=== PATIENT | male | born 1980 | race Hispanic/Latino ===

== ENCOUNTER 2017-10-15 13:27 | Emergency (ER) | payer OTHER ==
[2017-10-15 13:49] VITALS: BMI 23.0
--- NOTE | 2017-10-15 15:47 | CT ---
Date of service: 10/15/2017 PROCEDURE: CT Cervical Spine without contrast HISTORY: non-traumatic diffuse neck tenderness COMPARISON: None available. TECHNIQUE: Axial computed tomography images were obtained of the cervical spine without the use of intravenous contrast. Coronal and sagittal reformatted images were created and reviewed. Radiation dose: Total exam DLP = 489 mGy-cm. This CT exam was performed using one or more of the following dose reduction techniques: Automated exposure control, adjustment of the mA and/or kV according to patient size, and/or use of iterative reconstruction technique. FINDINGS: VERTEBRAE: No fracture. Normal alignment. No destructive bony lesion. DISCS/SPINAL CANAL/NEURAL FORAMINA: No significant central canal or neural foraminal stenosis. There is an asymmetric disc bulge to the right at C5-6 which produces foraminal stenosis. There is disc degeneration with bony sclerosis and decreased disc height PARASPINAL SOFT TISSUES: Unremarkable. OTHER FINDINGS: None. IMPRESSION: There is an asymmetric disc bulge to the right at C5-6 which produces foraminal stenosis. There is disc degeneration with bony sclerosis and decreased disc height
[2017-10-15 15:54] VITALS: BP 132/77; PULSE 76; RESP 17; O2SAT 98
--- NOTE | 2017-10-15 15:54 | ED PDOC ---
Arrival/HPI - General Chief Complaint: Back Pain Time Seen by Provider: 10/15/17 14:25 Historian: Patient - History of Present Illness Narrative History of Present Illness (Text): 10/15/17 14:25 37 year old male, with past medical history of hypothyroidism, presents to the Emergency department complaining of diffused neck pain since yesterday. Patient states diffused nonradiating pain worsening today prompting him to present to the Emergency department for evaluation. Patient denies any direct trauma or heavy lifting. Patient denies taking any pain medication for the pain. Patient denies any fever, chills, nausea, vomiting, diarrhea, abdominal pain, chest pain , shortness of breath, headache or any other complaints. Time/Duration: 24 hours Symptom Onset: Gradual Symptom Course: Unchanged Quality: Aching Activities at Onset: Light Past Medical History - Provider Review Nursing Documentation Reviewed: Yes - Infectious Disease Hx of Infectious Diseases: None - Tetanus Immunization Tetanus Immunization: Unknown - Cardiac Hx Cardiac Disorders: No Hx Hypertension: No - Pulmonary Hx Respiratory Disorders: No Hx Tuberculosis: No - Neurological Hx Neurological Disorder: No Hx Alzheimer's Disease: No HX Cerebrovascular Accident: No Hx Seizures: No - HEENT Hx HEENT Disorder: No - Renal Hx Renal Disorder: No - Endocrine/Metabolic Hx Endocrine Disorders: Yes Hx Hypothyroidism: Yes - Hematological/Oncological Hx Blood Disorders: No Hx Cancer: No - Integumentary Hx Dermatological Disorder: Yes Hx Cellulitis: Yes (recurrent bilateral LE cellulitis) - Musculoskeletal/Rheumatological Hx Musculoskeletal Disorders: No - Gastrointestinal Hx Gastrointestinal Disorders: No - Genitourinary/Gynecological Hx Genitourinary Disorders: No Hx Sexually Transmitted Diseases: No - Psychiatric Hx Psychophysiologic Disorder: Yes Hx Anxiety: Yes Hx Depression: Yes Hx Substance Use: No - Past Surgical History Past Surgical History: No Previous - Anesthesia Hx Anesthesia: No - Suicidal Assessment Feels Threatened In Home Enviroment: No Family/Social History - Physician Review Nursing Documentation Reviewed: Yes Family/Social History: No Known Family HX Smoking Status: Heavy Smoker > 10 Cigarettes Daily Hx Alcohol Use: Yes Hx Substance Use: No Hx Substance Use Treatment: No Allergies/Home Meds Allergies/Adverse Reactions: Allergies No Known Allergies Allergy (Verified 10/15/17 15:54) Review of Systems - Physician Review All systems were reviewed & negative as marked: Yes - Review of Systems Constitutional: absent: Fevers Respiratory: absent: SOB Cardiovascular: absent: Chest Pain Gastrointestinal: absent: Abdominal Pain, Diarrhea, Nausea, Vomiting Musculoskeletal: Neck Pain Neurological: absent: Headache Physical Exam Vital Signs Reviewed: Yes Vital Signs Temp Pulse Resp BP Pulse Ox 10/15/17 16:13 98 F 76 17 132/77 98 10/15/17 15:53 76 17 132/77 98 10/15/17 13:46 98.0 F 80 20 144/91 H 99 Temperature: Afebrile Blood Pressure: Hypertensive Pulse: Regular Respiratory Rate: Normal Appearance: Positive for: Well-Appearing, Non-Toxic, Comfortable Pain Distress: None Mental Status: Positive for: Alert and Oriented X 3 - Systems Exam Head: Present: Atraumatic, Normocephalic Pupils: Present: PERRL Extroacular Muscles: Present: EOMI Conjunctiva: Present: Normal Mouth: Present: Moist Mucous Membranes Neck: Present: Normal Range of Motion, Other (diffused tenderness) Respiratory/Chest: Present: Clear to Auscultation, Good Air Exchange. No: Respiratory Distress, Accessory Muscle Use Cardiovascular: Present: Regular Rate and Rhythm, Normal S1, S2. No: Murmurs Abdomen: No: Tenderness, Distention, Peritoneal Signs Back: Present: Normal Inspection Upper Extremity: Present: Normal Inspection. No: Cyanosis, Edema Lower Extremity: Present: Normal Inspection. No: Edema Neurological: Present: GCS=15, CN II-XII Intact, Speech Normal Skin: Present: Warm, Dry, Normal Color. No: Rashes Psychiatric: Present: Alert, Oriented x 3, Normal Insight, Normal Concentration Medical Decision Making ED Course and Treatment: 10/15/17 14:25 Impression: 37 year old male presents to the Emergency department for diffused neck pain. Plan: -- CT of cervical spine -- Flexeril -- Toradol -- Reassess and disposition Prior Visits: Notes and results from previous visits were reviewed. Progress Notes: 10/15/17 15:57 CT of neck reviewed by radiologist, shows: There is an asymmetric disc bulge to the right at C5-6 which produces foraminal stenosis. There is disc degeneration with bony sclerosis and decreased disc height - RAD Interpretation Radiology Orders: 10/15/17 14:25 CERVICAL SPINE W/O CONTRAST [CT] Stat Differential Tester: Radiologist - Medication Orders Current Medication Orders: Discontinued Medications Cyclobenzaprine HCl (Flexeril) 10 mg PO STAT STA Stop: 10/15/17 14:26 Last Admin: 10/15/17 14:59 Dose: 10 mg Ketorolac Tromethamine (Toradol) 60 mg IM STAT STA Stop: 10/15/17 14:26 Last Admin: 10/15/17 14:59 Dose: 60 mg MAR Pain Assessment Document 10/15/17 14:59 [facility] (Rec: 10/15/17 15:00 [facility] [id number]) Pain Reassessment Is this a pain reassessment? No Sleep Is patient sleeping during reassessment? No Presence of Pain Presence of Pain Yes Pain Scale Used Pain Scale Used Numeric Location Left, Right or Bilateral Right Pain Location Body Site Neck Description Intensity of Pain at present 10 IM Administration Charges Document 10/15/17 14:59 [facility] (Rec: 10/15/17 15:00 [facility] [id number]) Charges for Administration # of IM Administrations 1 - Scribe Statement The provider has reviewed the documentation as recorded by the Scribe Ariella Mcguire. All medical record entries made by the Scribe were at my direction and personally dictated by me. I have reviewed the chart and agree that the record accurately reflects my personal performance of the history, physical exam, medical decision making, and the department course for this patient. I have also personally directed, reviewed, and agree with the discharge instructions and disposition. Disposition/Present on Arrival - Present on Arrival Any Indicators Present on Arrival: No History of DVT/PE: No History of Uncontrolled Diabetes: No Urinary Catheter: No History of Decub. Ulcer: No History Surgical Site Infection Following: None - Disposition Have Diagnosis and Disposition been Completed?: Yes Diagnosis: Neck pain Disposition: HOME/ ROUTINE Disposition Time: 15:40 Condition: GOOD Discharge Instructions (ExitCare): Herniated Disc (DC), Generalized Neck Pain ( DC) Additional Instructions: TONYA BARTLETT, thank you for letting us take care of you today. Your provider was Edmund Marie DO and you were treated for NECK AND SHOULDER PAIN. The emergency medical care you received today was directed at your acute symptoms. If you were prescribed any medication, please fill it and take as directed. It may take several days for your symptoms to resolve. Return to the Emergency Department if your symptoms worsen, do not improve, or if you have any other problems. Please contact your doctor or call one of the physicians/clinics you have been referred to that are listed on the Patient Visit Information form that is included in your discharge packet. Bring any paperwork you were given at discharge with you along with any medications you are taking to your follow up visit. Our treatment cannot replace ongoing medical care by a primary care provider outside of the emergency department. Thank you for allowing the [facility] team to be part of your care today. Follow up in the clinic in 3-4 days for re-evaluation and further management. Prescriptions: Ibuprofen [Motrin] 600 mg PO Q6 PRN #20 tab PRN Reason: Pain, Moderate (4-7) Meclizine [Meclizine*] 25 mg PO Q6 PRN #20 tab PRN Reason: Dizziness Referrals: [facility] [Outside] - Follow up with primary Fátima Newton MD [Staff Provider] - Follow up with primary Forms: [employer] (Swedish)
[2017-10-15 16:14] VITALS: TEMP 98
== END 2017-10-15 16:19 | disposition home or self-care (01) ==
LOC: ED 13:27
DX: M54.2 Cervicalgia (principal); E03.9 Hypothyroidism, unspecified; F17.210 Nicotine dependence, cigarettes, uncomplicated
CPT/HCPCS: 72125; 96372; 99283; J1885

== ENCOUNTER 2017-11-05 00:46 | Emergency (ER) | payer OTHER ==
[2017-11-05 00:51] VITALS: BMI 23.7
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
[2017-11-05 01:56] LABS: BASO # 0.03 K/mm3 (0.0-2.0); BASO % 0.7 % (0.0-3.0); EOS % 0.5 % (1.5-5.0); GRAN # 2.58 (1.4-6.5); GRAN % 59.6 % (50.0-68.0); HEMOGLOBIN 9.4 g/dL (14.0-18.0); LYMPH # 1.5 (1.2-3.4); LYMPH % 33.7 % (22.0-35.0); MEAN CELL VOLUME 103.1 fl (80.0-105.0); MEAN CORPUSCULAR HEMOGLOBIN 36.7 pg (25.0-35.0); MEAN CORPUSCULAR HGB CONC 35.6 g/dl (31.0-37.0); MEAN PLATELET VOLUME 10.4 fl (7.0-11.0); MONO # 0.2 (0.1-0.6); MONO % 5.5 % (1.0-6.0); RBC 2.56 10^6/uL (3.5-6.1); RED CELL DISTRIBUTION WIDTH 12.6 % (11.5-14.5); WHITE BLOOD COUNT 4.3 10^3/ul (4.5-11.0)
[2017-11-05 02:09] LABS: ALB/GLOB RATIO 1.6 (1.1-1.8); ALBUMIN 4.8 g/dL (3.0-4.8); ALT/SGPT 64 U/L (7-56); AST/SGOT 198 U/L (17-59); BLOOD UREA NITROGEN 17 mg/dL (7-21); CALCIUM 9.2 mg/dL (8.4-10.5); GFR AFRICAN-AMERICAN > 60; GFR NON-AFRICAN AMERICAN > 60
[2017-11-05 03:13] LABS: BARBITURATES, UR NEGATIVE (NEGATIVE); BENZODIAZEPINES, UR NEGATIVE (NEGATIVE); OPIATES, UR NEGATIVE (NEGATIVE); PHENCYCLIDINE, UR NEGATIVE (NEGATIVE)
[2017-11-05 07:33] VITALS: TEMP 98.1
--- NOTE | 2017-11-05 08:27 | RAD ---
Date of service: 11/05/2017 HISTORY: depression/SI COMPARISON: 05/08/2016 FINDINGS: LUNGS: The lungs are well inflated. There is mild pulmonary venous congestion PLEURA: No significant pleural effusion identified, no pneumothorax apparent. CARDIOVASCULAR: Normal. OSSEOUS STRUCTURES: No significant abnormalities. VISUALIZED UPPER ABDOMEN: Normal. OTHER FINDINGS: None. IMPRESSION: No acute findings.
[2017-11-05 10:15] VITALS: RESP 18
--- NOTE | 2017-11-05 10:55 | ED PDOC ---
Physical Exam Vital Signs Reviewed: Yes Vital Signs Temp Pulse Resp BP Pulse Ox 11/05/17 11:37 80 18 104/78 99 11/05/17 10:15 88 18 90/58 L 98 11/05/17 07:33 98.1 F 70 16 118/66 99 11/05/17 04:26 63 16 127/75 100 11/05/17 00:54 98.3 F 71 20 122/87 98 Temperature: Afebrile Blood Pressure: Normal Pulse: Regular Respiratory Rate: Normal Appearance: Positive for: Well-Appearing, Non-Toxic, Comfortable Pain Distress: None Mental Status: Positive for: Alert and Oriented X 3 Medical Decision Making ED Course and Treatment: 11/05/17 07:30 Patient endorsed to me by Dr. Daniels. Currently awaiting final mental health evaluation and disposition. Upon re-evaluation, patient is awake, alert, and denies any pain/discomfort. Reviewed blood work results with patient, including about his low hemoglobin levels. On re-examination, patient has no active bleeding, no hematemesis, no melena, no bloody stool. patient is not tremulous/hypotensive/tachycardic. Patient has been advised to follow-up of symptoms and follow-up for anemia. Awaiting PES consultation. 11/05/17 12:08 Patient evaluated and cleared for discharge from mental health evaluation. He denies suicidal ideation or homicidal ideation. No hallucinations noted. Not tremulous or tachycardic. Not orthostatic. No abdominal pain. Stool is negative for acute blood. I have again reviewed abnormal hgb and platelet count with patient and stressed need for close follow-up. As there is currently no active bleeding and patient cv stable, I have reviewed risks of alcohol abuse with patient and advised follow-up at clinic and PCP. Prior to discharge patient is ambulatory with no dizziness or gait instability denies any lightheadedness or dizziness. Again, no bleeding noted or reported. Anemia discussed with witness in laymen's terms and need for follow-up. Reassessment Condition: Re-examined - Lab Interpretations Lab Results: 11/05/17 01:47 11/05/17 01:47 Lab Results 11/05/17 02:03: Urine Opiates Screen Negative, Urine Methadone Screen Negative, Ur Barbiturates Screen Negative, Ur Phencyclidine Scrn Negative, Ur Amphetamines Screen Negative, U Benzodiazepines Scrn Negative, U Oth Cocaine Metabols Negative, U Cannabinoids Screen Negative 11/05/17 01:47: Alcohol, Quantitative 406 H* 11/05/17 01:47: Sodium 145, Potassium 3.8, Chloride 98, Carbon Dioxide 29, Anion Gap 23 H, BUN 17, Creatinine 1.0, Est GFR ( Amer) > 60, Est GFR ( Non-Af Amer) > 60, Random Glucose 95, Calcium 9.2, Total Bilirubin 1.2, AST 198 H, ALT 64 H, Alkaline Phosphatase 82, Total Protein 7.8, Albumin 4.8, Globulin 3.0, Albumin/Globulin Ratio 1.6 11/05/17 01:47: WBC 4.3 L D, RBC 2.56 L, Hgb 9.4 L, Hct 26.4 L, MCV 103.1, MCH 36.7 H, MCHC 35.6, RDW 12.6, Plt Count 92 L, MPV 10.4, Gran % 59.6, Lymph % ( Auto) 33.7, [place] % (Auto) 5.5, Eos % (Auto) 0.5 L, Baso % (Auto) 0.7, Gran # 2.58, Lymph # (Auto) 1.5, [place] # (Auto) 0.2, Eos # (Auto) 0.0, Baso # (Auto) 0.03 11/05/17 00:54: POC Glucose (mg/dL) 61 L - RAD Interpretation Radiology Orders: 11/05/17 01:27 CXR [CHEST PORTABLE] [RAD] Stat Suction Operator: Radiologist - Scribe Statement The provider has reviewed the documentation as recorded by the Haley Marie Provider Scribe Attestation: All medical record entries made by the Antwonibdelia were at my direction and personally dictated by me. I have reviewed the chart and agree that the record accurately reflects my personal performance of the history, physical exam, medical decision making, and the department course for this patient. I have also personally directed, reviewed, and agree with the discharge instructions and disposition. Disposition/Present on Arrival - Present on Arrival Any Indicators Present on Arrival: No History of DVT/PE: No History of Uncontrolled Diabetes: No Urinary Catheter: No History of Decub. Ulcer: No History Surgical Site Infection Following: None - Disposition Have Diagnosis and Disposition been Completed?: Yes Diagnosis: Alcohol intoxication, Depression, Anemia Disposition: HOME/ ROUTINE Disposition Time: 12:10 Patient Plan: Discharge Condition: GOOD Discharge Instructions (ExitCare): Depression, Adult (DC), Alcohol Abuse and Alcoholism (DC) Additional Instructions: You have a "low hemoglobin count" and "low platelet count". Risks of excessive alcohol use have been reviewed with you. For any abdominal pain, ANY BLEEDING, any dark or bloody urine or stool, any chest pain or shortness of breath, any coughing or vomiting bloody, any bruising , any headaches, get rechecked immediately. You MUST have blood work rechecked on you, please call your physician or set up appointment in clinic for further evaluation of your blood tests. Referrals: FAMILY PROVIDER,NO [Primary Care Provider] - Follow up with primary Fátima Newton MD [Staff Provider] - Follow up with primary [facility] [Outside] - Follow up with primary Forms: [employer] (Mauritian)
[2017-11-05 11:38] VITALS: BP 104/78; PULSE 80; O2SAT 99
--- NOTE | 2017-11-05 15:07 | CARD ---
APPROVED REPORT Date of service: 11/05/2017 EKG Measurement Heart [id number] ID [id number] <Conclusion> Normal sinus rhythm Prolonged QT Abnormal ECG
== END 2017-11-05 12:19 | disposition home or self-care (01) ==
LOC: ED 00:46
DX: F10.129 Alcohol abuse with intoxication, unspecified (principal); Y90.8 Blood alcohol level of 240 mg/100 ml or more; F32.9 Major depressive disorder, single episode, unspecified

== ENCOUNTER 2017-11-06 23:37 | Emergency (ER) | payer OTHER ==
[2017-11-06 23:37] VITALS: BMI 23.7
--- NOTE | 2017-11-07 00:43 | ED PDOC ---
Arrival/HPI - General Chief Complaint: Trauma Time Seen by Provider: 11/06/17 23:59 Historian: Patient - History of Present Illness Narrative History of Present Illness (Text): 11/07/17 00:43 A 37 year old male, whose past medical history includes hypothyroidism, chronic b/l LE Cellulitis, and depression, presents to the emergency department complaining of head injury status post fall from earlier today. Patient is distraught, overwhelmed and very drunk. Patient notes he has no place to stay and has brought a suitcase with him. Patient denies any fever, chills, chest pain, shortness of breath, nausea, vomiting, diarrhea, urinary symptoms, back pain, neck pain, headache, dizziness, or any other complaints. No PMD Time/Duration: Other (earlier tonight) Symptom Onset: Sudden Symptom Course: Unchanged Context: Street Past Medical History - Provider Review Nursing Documentation Reviewed: Yes - Infectious Disease Hx of Infectious Diseases: None - Tetanus Immunization Tetanus Immunization: Unknown - Cardiac Hx Cardiac Disorders: No - Pulmonary Hx Respiratory Disorders: No - Neurological Hx Neurological Disorder: No - HEENT Hx HEENT Disorder: No - Renal Hx Renal Disorder: No - Endocrine/Metabolic Hx Endocrine Disorders: Yes Hx Hypothyroidism: Yes - Hematological/Oncological Hx Blood Disorders: No - Integumentary Hx Dermatological Disorder: Yes Hx Cellulitis: Yes (recurrent bilateral LE cellulitis) - Musculoskeletal/Rheumatological Hx Musculoskeletal Disorders: No - Gastrointestinal Hx Gastrointestinal Disorders: No - Genitourinary/Gynecological Hx Genitourinary Disorders: No - Psychiatric Hx Psychophysiologic Disorder: Yes Hx Anxiety: Yes Hx Depression: Yes Hx Substance Use: No - Past Surgical History Past Surgical History: No Previous - Anesthesia Hx Anesthesia: No - Suicidal Assessment Feels Threatened In Home Enviroment: No Family/Social History - Physician Review Nursing Documentation Reviewed: Yes Family/Social History: Unknown Family HX Smoking Status: Heavy Smoker > 10 Cigarettes Daily Hx Alcohol Use: Yes Hx Substance Use: No Hx Substance Use Treatment: No Allergies/Home Meds Allergies/Adverse Reactions: Allergies No Known Allergies Allergy (Verified 10/15/17 15:54) Home Medications: Home Meds Medication Instructions Recorded Confirmed No Known Home Med 11/05/17 11/05/17 Review of Systems - Physician Review All systems were reviewed & negative as marked: Yes - Review of Systems Constitutional: Other (bump on the right side of his head). absent: Fevers, Night Sweats Eyes: Normal ENT: Normal Respiratory: Normal. absent: SOB Cardiovascular: Normal. absent: Chest Pain Gastrointestinal: Normal. absent: Diarrhea, Nausea, Vomiting Genitourinary Male: Normal. absent: Urinary Output Changes Musculoskeletal: Normal. absent: Back Pain, Neck Pain Skin: Normal Neurological: Normal. absent: Headache, Dizziness Endocrine: Normal Hemo/Lymphatic: Normal Psychiatric: Normal Physical Exam - Systems Exam Head: Present: Atraumatic, Normocephalic, Other (bump on right parietal area). No: Tenderness, Contusion, Swelling, Ecchymosis, Abrasion, Laceration Pupils: Present: PERRL Extroacular Muscles: Present: EOMI Conjunctiva: Present: Normal Mouth: Present: Moist Mucous Membranes Neck: Present: Normal Range of Motion Respiratory/Chest: Present: Clear to Auscultation, Good Air Exchange. No: Respiratory Distress, Accessory Muscle Use Cardiovascular: Present: Regular Rate and Rhythm, Normal S1, S2. No: Murmurs Abdomen: No: Tenderness, Distention, Peritoneal Signs Back: Present: Normal Inspection Upper Extremity: Present: Normal Inspection. No: Cyanosis, Edema Lower Extremity: Present: Normal Inspection. No: Edema Neurological: Present: GCS=15, CN II-XII Intact, Speech Normal Skin: Present: Warm, Dry, Normal Color. No: Rashes Psychiatric: Present: Alert, Oriented x 3, Normal Insight, Normal Concentration Medical Decision Making ED Course and Treatment: 11/07/17 00:47 Impression: 37 year old male presenting to the Emergency department complaining of right sided head injury status post fall Plan: -- Head CT w/o Contrasst -- EKG -- Labs -- CBC -- Chest X-ray -- AES Crisis Evaluation -- Urinalysis -- Reassess and disposition Prior Visits: Notes and results from previous visits were reviewed. Progress Notes: 11/07/17 00:50 EKG reviewed by me, shows normal sinus rhythm with sinus arrhythmia, nonspecific T wave abnormality and abnormal ECG. 11/07/17 02:20 EXAM: CT Head Without Intravenous Contrast FINDINGS: Brain: There are areas of diminished density in the white matter bilaterally consistent with chronic small vessel ischemic changes. Olivarez-white matter differentiation is intact and unremarkable. No mass lesion. No evidence of intracranial hemorrhage. Ventricles: Unremarkable. No ventriculomegaly. Bones/joints: No evidence of fracture. Soft tissues: Unremarkable. Sinuses: Unremarkable as visualized. No acute sinusitis. Mastoid air cells: Unremarkable as visualized. No mastoid effusion. Auditory system: Soft tissue density seen in left external auditory canal. IMPRESSION: 1. No evidence of fracture. No evidence of acute intracranial bleed. 2. Chronic ischemic changes bilaterally. 3. Soft tissue density seen in left external auditory canal. Please correlate with physical exam for cerumen Dictated and Authenticated by: Jolynn Rojas MD - Lab Interpretations Lab Results: 11/07/17 00:30 11/07/17 00:30 Lab Results 11/07/17 00:30: Alcohol, Quantitative 428 H* 11/07/17 00:30: Salicylates < 1 L, Acetaminophen < 10.0 L 11/07/17 00:30: Urine Opiates Screen Negative, Urine Methadone Screen Negative, Ur Barbiturates Screen Negative, Ur Phencyclidine Scrn Negative, Ur Amphetamines Screen Negative, U Benzodiazepines Scrn Negative, U Oth Cocaine Metabols Negative, U Cannabinoids Screen Negative 11/07/17 00:30: Sodium 147, Potassium 3.5 L, Chloride 99, Carbon Dioxide 29, Anion Gap 23 H, BUN 20, Creatinine 1.0, Est GFR ( Amer) > 60, Est GFR ( Non-Af Amer) > 60, Random Glucose 94, Calcium 9.5, Total Bilirubin 1.0, AST 254 H D, ALT 62 H, Alkaline Phosphatase 90, Total Protein 7.7, Albumin 4.8, Globulin 3.0, Albumin/Globulin Ratio 1.6 11/07/17 00:30: Urine Color Yellow, Urine Appearance Sl cloudy, Urine pH 6.5, Ur Specific [place] 1.025, Urine Protein 100 H, Urine Glucose (UA) Negative, Urine Ketones Trace H, Urine Blood Large H, Urine Nitrate Negative, Urine Bilirubin Negative, Urine Urobilinogen 2.0 H, Ur Leukocyte Esterase Trace H, Urine RBC 20 - 25, Urine WBC 0 - 2, Ur Epithelial Cells 0 - 2 11/07/17 00:30: WBC 4.2 L, RBC 2.56 L, Hgb 9.3 L, Hct 26.1 L, MCV 102.0, MCH 36.3 H, MCHC 35.6, RDW 12.6, Plt Count 88 L, MPV 10.8, Gran % 61.3, Lymph % ( Auto) 31.4, [place] % (Auto) 6.4 H, Eos % (Auto) 0.2 L, Baso % (Auto) 0.7, Gran # 2.58, Lymph # (Auto) 1.3, [place] # (Auto) 0.3, Eos # (Auto) 0.0, Baso # (Auto) 0.03 - RAD Interpretation Radiology Orders: 11/07/17 00:11 CHEST ONE VIEW [RAD] Stat 11/07/17 00:12 HEAD W/O CONTRAST [CT] Stat - Scribe Statement The provider has reviewed the documentation as recorded by the Haley Buck All medical record entries made by the Haley were at my direction and personally dictated by me. I have reviewed the chart and agree that the record accurately reflects my personal performance of the history, physical exam, medical decision making, and the department course for this patient. I have also personally directed, reviewed, and agree with the discharge instructions and disposition. Disposition/Present on Arrival - Present on Arrival History of DVT/PE: No History of Uncontrolled Diabetes: No Urinary Catheter: No History of Decub. Ulcer: No History Surgical Site Infection Following: None - Disposition Forms: [employer] (Romansh)
[2017-11-07 01:21] LABS: BASO # 0.03 K/mm3 (0.0-2.0); BASO % 0.7 % (0.0-3.0); EOS % 0.2 % (1.5-5.0); GRAN # 2.58 (1.4-6.5); GRAN % 61.3 % (50.0-68.0); HEMOGLOBIN 9.3 g/dL (14.0-18.0); LYMPH # 1.3 (1.2-3.4); LYMPH % 31.4 % (22.0-35.0); MEAN CORPUSCULAR HEMOGLOBIN 36.3 pg (25.0-35.0); MEAN CORPUSCULAR HGB CONC 35.6 g/dl (31.0-37.0); MEAN PLATELET VOLUME 10.8 fl (7.0-11.0); MONO # 0.3 (0.1-0.6); MONO % 6.4 % (1.0-6.0); RBC 2.56 10^6/uL (3.5-6.1); RED CELL DISTRIBUTION WIDTH 12.6 % (11.5-14.5); WHITE BLOOD COUNT 4.2 10^3/ul (4.5-11.0)
[2017-11-07 01:22] LABS: PH,URINE 6.5 (4.7-8.0); URINE BILIRUBIN NEGATIVE (NEGATIVE); URINE BLOOD LARGE (NEGATIVE); URINE GLUCOSE (UA) NEGATIVE (NEGATIVE); URINE LEUKOCYTE ESTERASE TRACE Leu/uL (NEGATIVE); URINE PROTEIN 100 mg/dL (<30 mg/dL)
[2017-11-07 01:33] LABS: ACETAMINOPHEN < 10.0 ug/ml (10.0-20.0); ALB/GLOB RATIO 1.6 (1.1-1.8); ALBUMIN 4.8 g/dL (3.0-4.8); ALT/SGPT 62 U/L (7-56); AST/SGOT 254 U/L (17-59); BLOOD UREA NITROGEN 20 mg/dL (7-21); CALCIUM 9.5 mg/dL (8.4-10.5); GFR AFRICAN-AMERICAN > 60; GFR NON-AFRICAN AMERICAN > 60; SALICYLATE < 1 mg/dL (2.0-20.0)
[2017-11-07 01:38] LABS: URINE APPEARANCE SL CLOUDY (CLEAR); URINE COLOR YELLOW (YELLOW)
[2017-11-07 01:42] LABS: URINE EPITHELIAL CELLS 0 - 2 /hpf (0-5); URINE RBC 20 - 25 /hpf (0-2); URINE WBC 0 - 2 /hpf (0-6)
[2017-11-07 01:48] LABS: BARBITURATES, UR NEGATIVE (NEGATIVE); BENZODIAZEPINES, UR NEGATIVE (NEGATIVE); OPIATES, UR NEGATIVE (NEGATIVE); PHENCYCLIDINE, UR NEGATIVE (NEGATIVE)
--- NOTE | 2017-11-07 07:37 | ED PDOC ---
Physical Exam - Physical Exam Narrative Physical Exam (Text): 11/07/17 07:37 Patient endorsed to me by Dr. Ruiz, pending clinical sobriety and reassessment. Vital Signs Temp Pulse Resp BP Pulse Ox 11/07/17 15:46 97.9 F 82 18 109/68 99 11/07/17 15:44 97.9 F 82 18 109/68 99 11/07/17 11:17 55 L 18 90/48 L 96 11/07/17 10:33 98.2 F 58 L 18 110/79 96 11/07/17 07:20 98.3 F 52 L 16 104/76 94 L 11/07/17 05:37 60 18 113/89 95 11/07/17 00:15 98.5 F 69 18 119/79 100 Medical Decision Making ED Course and Treatment: 11/07/17 13:23 CT HEAD reviewed by radiologist, shows: No acute intracranial hemorrhage. Mild chronic low-attenuation white matter changes. Moderate volume loss. Chest X-ray reviewed by radiologist, shows: No active disease. 11/07/17 16:10 Patient was reassessed and is awake and alert, eating a sandwich. Patient denies any suicidal or homicidal ideation. Patient requests discharge, and no tremors have been noted. - Lab Interpretations Lab Results: 11/07/17 00:30 11/07/17 00:30 Lab Results 11/07/17 12:24: Alcohol, Quantitative 226 H 11/07/17 00:30: Alcohol, Quantitative 428 H* 11/07/17 00:30: Salicylates < 1 L, Acetaminophen < 10.0 L 11/07/17 00:30: Urine Opiates Screen Negative, Urine Methadone Screen Negative, Ur Barbiturates Screen Negative, Ur Phencyclidine Scrn Negative, Ur Amphetamines Screen Negative, U Benzodiazepines Scrn Negative, U Oth Cocaine Metabols Negative, U Cannabinoids Screen Negative 11/07/17 00:30: Sodium 147, Potassium 3.5 L, Chloride 99, Carbon Dioxide 29, Anion Gap 23 H, BUN 20, Creatinine 1.0, Est GFR ( Amer) > 60, Est GFR ( Non-Af Amer) > 60, Random Glucose 94, Calcium 9.5, Total Bilirubin 1.0, AST 254 H D, ALT 62 H, Alkaline Phosphatase 90, Total Protein 7.7, Albumin 4.8, Globulin 3.0, Albumin/Globulin Ratio 1.6 11/07/17 00:30: Urine Color Yellow, Urine Appearance Sl cloudy, Urine pH 6.5, Ur Specific [place] 1.025, Urine Protein 100 H, Urine Glucose (UA) Negative, Urine Ketones Trace H, Urine Blood Large H, Urine Nitrate Negative, Urine Bilirubin Negative, Urine Urobilinogen 2.0 H, Ur Leukocyte Esterase Trace H, Urine RBC 20 - 25, Urine WBC 0 - 2, Ur Epithelial Cells 0 - 2 11/07/17 00:30: WBC 4.2 L, RBC 2.56 L, Hgb 9.3 L, Hct 26.1 L, MCV 102.0, MCH 36.3 H, MCHC 35.6, RDW 12.6, Plt Count 88 L, MPV 10.8, Gran % 61.3, Lymph % ( Auto) 31.4, [place] % (Auto) 6.4 H, Eos % (Auto) 0.2 L, Baso % (Auto) 0.7, Gran # 2.58, Lymph # (Auto) 1.3, [place] # (Auto) 0.3, Eos # (Auto) 0.0, Baso # (Auto) 0.03 - RAD Interpretation Radiology Orders: 11/07/17 00:11 CHEST ONE VIEW [RAD] Stat 11/07/17 00:12 HEAD W/O CONTRAST [CT] Stat Disposition/Present on Arrival - Present on Arrival Any Indicators Present on Arrival: No History of DVT/PE: No History of Uncontrolled Diabetes: No Urinary Catheter: No History of Decub. Ulcer: No History Surgical Site Infection Following: None - Disposition Have Diagnosis and Disposition been Completed?: Yes Diagnosis: Alcohol intoxication Disposition: HOME/ ROUTINE Disposition Time: 03:00 Condition: STABLE Discharge Instructions (ExitCare): Alcohol Abuse and Alcoholism (DC) Additional Instructions: return to er with worsening symptoms or concerns. follow up with your doctor. Referrals: Alcoholics Anonymous [Outside] - Follow up with primary [facility] [Outside] - Follow up with primary [facility] [Outside] - Follow up with primary Forms: [employer] (Malawian)
--- NOTE | 2017-11-07 08:52 | CARD ---
APPROVED REPORT Date of service: 11/07/2017 EKG Measurement Heart [id number] <Conclusion> Normal sinus rhythm with sinus arrhythmia Nonspecific T wave abnormality Abnormal ECG
--- NOTE | 2017-11-07 09:40 | CT ---
Date of service: 11/07/2017 PROCEDURE: CT HEAD WITHOUT CONTRAST. HISTORY: COMPARISON: Comparison made with prior CT scan brain 04/09/2015 TECHNIQUE: Axial computed tomography images were obtained through the head/brain without intravenous contrast. Radiation dose: Total exam DLP = 1057.71 mGy-cm. This CT exam was performed using one or more of the following dose reduction techniques: Automated exposure control, adjustment of the mA and/or kV according to patient size, and/or use of iterative reconstruction technique. FINDINGS: HEMORRHAGE: No acute parenchymal, subarachnoid nor extra-axial hemorrhage. BRAIN: Mild diffuse/ confluent chronic low-attenuation changes seen in the periventricular and deep white matter both cerebral hemispheres. Findings could represent chronic sequela of small vessel disease. No obvious parenchymal nor extra-axial mass or collection identified on this noncontrast study. Moderate generalized volume loss this age group. VENTRICLES: No obstructive hydrocephalus. CALVARIUM: Calvarium intact. PARANASAL SINUSES: Minor mucosal thickening both maxillary antra. Minimal mucosal thickening noted within the right chamber sphenoid sinus. Minimal mucosal thickening also noted within a few ethmoid air cells. MASTOID AIR CELLS: Mastoid air complexes remain underpneumatized and sclerotic. . Note made of cerumen ball within the left external auditory canal OTHER FINDINGS: None. IMPRESSION: No acute intracranial hemorrhage. Mild chronic low-attenuation white matter changes. Moderate volume loss. See above discussion for additional details and findings.
[2017-11-07 10:35] VITALS: RESP 18
--- NOTE | 2017-11-07 12:52 | RAD ---
Date of service: 11/07/2017 PROCEDURE: CHEST RADIOGRAPH, 1 VIEW HISTORY: Medical Clearance COMPARISON: Comparison chest dated 12/15 FINDINGS: LUNGS: Clear. PLEURA: No pneumothorax or pleural fluid seen. CARDIOVASCULAR: Heart size upper limits of normal/ OSSEOUS STRUCTURES: No significant abnormalities. VISUALIZED UPPER ABDOMEN: Normal. OTHER FINDINGS: None. IMPRESSION: No active disease.
[2017-11-07 15:45] VITALS: BP 109/68; PULSE 82; TEMP 97.9; O2SAT 99
== END 2017-11-07 15:46 | disposition home or self-care (01) ==
LOC: ED 23:37
DX: F10.129 Alcohol abuse with intoxication, unspecified (principal); Y90.8 Blood alcohol level of 240 mg/100 ml or more; F41.9 Anxiety disorder, unspecified; F32.9 Major depressive disorder, single episode, unspecified; L03.115 Cellulitis of right lower limb; L03.116 Cellulitis of left lower limb

== ENCOUNTER 2017-11-15 06:18 | Inpatient (IN) | payer MEDICAID, OTHER ==
[2017-11-15 06:33] VITALS: BMI 24.3
--- NOTE | 2017-11-15 08:08 | ED PDOC ---
Physical Exam Vital Signs Reviewed: Yes Vital Signs Temp Pulse Resp BP Pulse Ox 11/15/17 07:41 75 18 128/69 98 11/15/17 06:33 97.5 F L 82 16 132/70 98 Medical Decision Making ED Course and Treatment: Progress notes: 11/15/17 07:00 Case endorsed to me by Dr. Queen for pending face to face evaluation with Dr. Chaudhry. 11/15/17 07:33 Patient has been seen by Dr. Chaudhry, who would like patient to get Haldol and Ativan for sedation before admission to voluntary unit. - Medication Orders Current Medication Orders: Discontinued Medications Haloperidol Lactate (Haldol) 5 mg IM STAT STA PRN Reason: Protocol Stop: 11/15/17 07:52 Lorazepam (Ativan) 2 mg IM ONCE ONE PRN Reason: Protocol Stop: 11/15/17 07:53 - Scribe Statement The provider has reviewed the documentation as recorded by the Scribe Christel Heaton All medical record entries made by the Scribe were at my direction and personally dictated by me. I have reviewed the chart and agree that the record accurately reflects my personal performance of the history, physical exam, medical decision making, and the department course for this patient. I have also personally directed, reviewed, and agree with the discharge instructions and disposition. Disposition/Present on Arrival - Present on Arrival History of DVT/PE: No History of Uncontrolled Diabetes: No Urinary Catheter: No History of Decub. Ulcer: No History Surgical Site Infection Following: None - Disposition Referrals: FAMILY PROVIDER,NO [Primary Care Provider] - Follow up with primary Forms: [employer] (Tongan)
--- NOTE | 2017-11-15 08:30 | ED PDOC ---
Arrival/HPI - General Chief Complaint: Alcohol Ingestion Time Seen by Provider: 11/15/17 07:14 Historian: Patient - History of Present Illness Narrative History of Present Illness (Text): 11/15/17 07:45 37 M with PMHx of hypothyroidism, chronic b/l LE Cellulitis, and depression, presents with cc of leg pain for the last couple of days. Patient reports recently starting to wear shorts and getting a sunburn to lower legs due to that. Patient notes drinking last night. Patient denies any other complaints. Time/Duration: Other (last couple of days) Symptom Onset: Gradual Symptom Course: Unchanged Activities at Onset: Light Past Medical History - Provider Review Nursing Documentation Reviewed: Yes - Infectious Disease Hx of Infectious Diseases: None - Tetanus Immunization Tetanus Immunization: Unknown - Cardiac Hx Cardiac Disorders: No - Pulmonary Hx Respiratory Disorders: No - Neurological Hx Neurological Disorder: No - HEENT Hx HEENT Disorder: No - Renal Hx Renal Disorder: No - Endocrine/Metabolic Hx Endocrine Disorders: Yes Hx Hypothyroidism: Yes - Hematological/Oncological Hx Blood Disorders: No - Integumentary Hx Dermatological Disorder: Yes Hx Cellulitis: Yes (recurrent bilateral LE cellulitis) - Musculoskeletal/Rheumatological Hx Musculoskeletal Disorders: No - Gastrointestinal Hx Gastrointestinal Disorders: No - Genitourinary/Gynecological Hx Genitourinary Disorders: No - Psychiatric Hx Psychophysiologic Disorder: Yes Hx Anxiety: Yes Hx Depression: Yes Hx Substance Use: No - Past Surgical History Past Surgical History: No Previous - Anesthesia Hx Anesthesia: No - Suicidal Assessment Feels Threatened In Home Enviroment: No Family/Social History - Physician Review Nursing Documentation Reviewed: Yes Family/Social History: No Known Family HX Smoking Status: Heavy Smoker > 10 Cigarettes Daily Hx Alcohol Use: Yes Hx Substance Use: No Hx Substance Use Treatment: No Allergies/Home Meds Allergies/Adverse Reactions: Allergies No Known Allergies Allergy (Verified 11/15/17 06:32) Home Medications: Home Meds Medication Instructions Recorded Confirmed No Known Home Med 11/05/17 11/15/17 Review of Systems - Physician Review All systems were reviewed & negative as marked: Yes (All other systems negative except that noted in the HPI.) Physical Exam - Physical Exam Narrative Physical Exam (Text): 11/15/17 08:28 Gen: VS reviewed, alert, well developed, well nourished, nontoxic, mild distress. ENT: normal pharynx. Eye: EOMI, PERRL. Neck: no JVD, supple, no adenopathy. CV: regular rate, regular rhythm, no rubs, no murmur, no gallops, S1, S2, pulses equal and strong. Pulm: no distress, clear to auscultation, no wheeze, no rhonchi, breath sounds equal, no rales. Abd: soft, nontender, no guarding, no rebound, no rigidity, normal bowel sounds. Psych: responds appropriately to questions, normal affect. Neuro: oriented x 3, CN2-12 intact grossly, motor intact, sensation intact. Physical exam is normal except: -- Diffuse edema in legs, arms, face -- Hepatomegaly? -- Dark red rash on both legs. No pitting. Homogenous with bilateral lower extremities which is nontender to touch. -- No weeping wounds Vital Signs Reviewed: Yes Vital Signs Temp Pulse Resp BP Pulse Ox 11/15/17 12:02 65 18 109/78 11/15/17 10:36 65 18 109/78 98 11/15/17 09:04 97.8 F 63 18 107/85 98 11/15/17 07:41 75 18 128/69 98 11/15/17 06:33 97.5 F L 82 16 132/70 98 Temperature: Febrile Blood Pressure: Normal Pulse: Regular Respiratory Rate: Normal Appearance: Positive for: Well-Appearing, Non-Toxic, Comfortable Pain Distress: Mild Mental Status: Positive for: Alert and Oriented X 3 Medical Decision Making ED Course and Treatment: 11/15/17 07:45 Plan: -- Breakfast -- Reassess and disposition Prior Visits: Notes and results from previous visits were reviewed. Patient was last seen in the emergency department on 11/07/17 complaining of head injury status post fall from earlier that day. Progress Notes: 11/15/17 11:01 admit accepted by hospitalist, dr. ulloa. patient to be admitted for suspected alcoholic cirrhosis, pancytopenia, potential alcohol withdrawal. will get lower ext venous duplex to rule out dvt. clinicallu, the legs have the appearance of chronic venous stasis as well as old sunburn around the knees. - Lab Interpretations Lab Results: 11/15/17 09:00 11/15/17 09:00 Lab Results 11/15/17 09:00: Free T4 < 0.07 L, TSH 3rd Generation 55.50 H 11/15/17 09:00: Magnesium 0.7 L*, Total Creatine Kinase 2629 H, CK-MB (CK-2) 7.8 H, CK-MB (CK-2) % 0.3 L 11/15/17 09:00: Magnesium 0.7 L* 11/15/17 09:00: Alcohol, Quantitative 258 H 11/15/17 09:00: Sodium 143, Potassium 3.1 L, Chloride 93 L, Carbon Dioxide 33, Anion Gap 20, BUN 15, Creatinine 0.7 L, Est GFR ( Amer) > 60, Est GFR ( Non-Af Amer) > 60, Random Glucose 78, Calcium 10.3, Total Bilirubin 1.0, AST 300 H, ALT 74 H, Alkaline Phosphatase 133 H D, Total Protein 7.9, Albumin 4.9 H , Globulin 2.9, Albumin/Globulin Ratio 1.7 11/15/17 09:00: PT 11.4, INR 0.99, APTT 31.2 11/15/17 09:00: WBC 3.1 L D, RBC 2.64 L, Hgb 9.5 L, Hct 26.1 L, MCV 98.9 D, MCH 36.0 H, MCHC 36.4, RDW 12.4, Plt Count 94 L, MPV 10.1, Gran % 62.7, Lymph % (Auto) 28.9, [place] % (Auto) 7.8 H, Eos % (Auto) 0.3 L, Baso % (Auto) 0.3, Gran # 1.93, Lymph # (Auto) 0.9 L, [place] # (Auto) 0.2, Eos # (Auto) 0.0, Baso # (Auto) 0.01 - RAD Interpretation Radiology Orders: 11/15/17 10:58 DUPLEX LOWER EXTRM VEIN BILAT [US] Stat - EKG Interpretation EKG Interpretation (Text): 11/15/17 11:19 1030: sinus neyda at 56 bpm, nml qrs, low voltage, poor r wave progression Interpreted by ED Physician: Yes - Medication Orders Current Medication Orders: Calamine (Calamine Lotion) 0 ml TOP BID DANIELITO Enoxaparin Sodium (Lovenox) 40 mg SC DAILY [facility] PRN Reason: Protocol Famotidine (Pepcid) 20 mg PO HS DANIELITO Folic Acid (Folic Acid) 1 mg PO DAILY DANIELITO Multivitamins/Vitamin C 10 ml/Thiamine HCl 100 mg/ Folic Acid 1 mg/ Sodium Chloride 1,011.2 mls @ 250 mls/hr IV .Q4H3M ONE Stop: 11/15/17 17:35 Last Admin: 11/15/17 14:31 Dose: eMAR Start Stop Document 11/15/17 14:31 BIR (Rec: 11/15/17 14:31 BIR [id number]) Intravenous Solution Start Date 11/15/17 Start Time 13:00 Multivitamins/Vitamin C 10 ml/Thiamine HCl 100 mg/ Folic Acid 1 mg/ Sodium Chloride 1,011.2 mls @ 250 mls/hr IV .Q4H3M ONE Stop: 11/15/17 21:32 Sodium Chloride (Sodium Chloride 0.9%) 1,000 mls @ 150 mls/hr IV .Q6H40M DANIELITO Levothyroxine Sodium (Synthroid) 125 mcg PO 0600 DANIELITO Lorazepam (Ativan) 2 mg IVP Q4H PRN; Protocol PRN Reason: Symptoms of alcohol withdrawl Lorazepam (Ativan) 2 mg IVP Q6H DANIELITO PRN Reason: Protocol Multivitamins (Thera Tab) 1 tab PO 0800 DANIELITO Thiamine HCl (Vitamin B1 Tab) 100 mg PO DAILY DANIELITO Discontinued Medications Multivitamins/Vitamin C 10 ml/Thiamine HCl 100 mg/ Folic Acid 1 mg/ Sodium Chloride 1,011.2 mls @ 150 mls/hr IV .Q6H45M ONE Stop: 11/15/17 17:00 Last Admin: 11/15/17 10:52 Dose: 150 mls/hr eMAR Start Stop Document 11/15/17 10:52 LA (Rec: 11/15/17 10:52 ANTHONY [id number]) Intravenous Solution Start Date 11/15/17 Start Time 10:52 Magnesium 2 gm/50 ml NS (Magnesium Sulfate 2 Gm/50 Ml Ns) 2 gm in 50 mls @ 50 mls/hr IVPB ONCE ONE Stop: 11/15/17 12:19 Last Admin: 11/15/17 12:49 Dose: 50 mls/hr eMAR Start Stop Document 11/15/17 12:49 LA (Rec: 11/15/17 12:49 ANTHONY [id number]) Intravenous Solution Start Date 11/15/17 Start Time 12:49 End Date 11/15/17 End time 13:49 Total Infusion Time 60 Multivitamins/Vitamin C 10 ml/Thiamine HCl 100 mg/ Folic Acid 1 mg/ Sodium Chloride 1,011.2 mls @ 150 mls/hr IV .Q6H45M ONE Stop: 11/16/17 00:14 Potassium Chloride (Klor-Con 10) 30 meq PO Q1H DANIELITO Stop: 11/15/17 11:31 Last Admin: 11/15/17 11:40 Dose: 30 meq - Scribe Statement The provider has reviewed the documentation as recorded by the Antwonibe Christel Heaton All medical record entries made by the Antwonibdelia were at my direction and personally dictated by me. I have reviewed the chart and agree that the record accurately reflects my personal performance of the history, physical exam, medical decision making, and the department course for this patient. I have also personally directed, reviewed, and agree with the discharge instructions and disposition. Disposition/Present on Arrival - Present on Arrival Any Indicators Present on Arrival: No History of DVT/PE: No History of Uncontrolled Diabetes: No Urinary Catheter: No History of Decub. Ulcer: No History Surgical Site Infection Following: None - Disposition Have Diagnosis and Disposition been Completed?: Yes Diagnosis: Electrolyte imbalance Disposition: HOSPITALIZED Disposition Time: 15:09 Patient Plan: Admission Condition: STABLE
[2017-11-15 09:11] LABS: BASO # 0.01 K/mm3 (0.0-2.0); BASO % 0.3 % (0.0-3.0); EOS % 0.3 % (1.5-5.0); GRAN # 1.93 (1.4-6.5); GRAN % 62.7 % (50.0-68.0); HEMOGLOBIN 9.5 g/dL (14.0-18.0); LYMPH # 0.9 (1.2-3.4); LYMPH % 28.9 % (22.0-35.0); MEAN CELL VOLUME 98.9 fl (80.0-105.0); MEAN CORPUSCULAR HGB CONC 36.4 g/dl (31.0-37.0); MEAN PLATELET VOLUME 10.1 fl (7.0-11.0); MONO # 0.2 (0.1-0.6); MONO % 7.8 % (1.0-6.0); RBC 2.64 10^6/uL (3.5-6.1); RED CELL DISTRIBUTION WIDTH 12.4 % (11.5-14.5); WHITE BLOOD COUNT 3.1 10^3/ul (4.5-11.0)
[2017-11-15 09:19] LABS: INR 0.99; PARTIAL THROMBOPLASTIN TIME 31.2 Seconds (25.1-36.5); PROTHROMBIN TIME 11.4 SECONDS (9.4-12.5)
[2017-11-15 09:54] LABS: ALB/GLOB RATIO 1.7 (1.1-1.8); ALBUMIN 4.9 g/dL (3.0-4.8); ALT/SGPT 74 U/L (7-56); AST/SGOT 300 U/L (17-59); BLOOD UREA NITROGEN 15 mg/dL (7-21); CALCIUM 10.3 mg/dL (8.4-10.5); GFR NON-AFRICAN AMERICAN > 60
[2017-11-15] MEDS ORDERED: Multivitamin (MVI) 10 ML, Thiamine 100 MG, Folic Acid 1 MG in Sodium Chloride 0.9% 1,00... IV ONE ×4 (10:16→17:30)
[2017-11-15] MEDS ORDERED: Potassium Chloride 20 mEq ER Tab PO STA (10:17)
[2017-11-15] MEDS: Potassium Chloride 10 mEq ER Tab PO SCH ×2 (10:52→11:40)
--- NOTE | 2017-11-15 11:18 | CARD ---
APPROVED REPORT Date of service: 11/15/2017 EKG Measurement Heart [id number] <Conclusion> Sinus bradycardia Possible Anterior infarct, age undetermined Abnormal ECG
[2017-11-15] MEDS ORDERED: Magnesium 2 gm/50 ml NS 2 GM/50 ML BAG IVPB ONE (11:20)
--- NOTE | 2017-11-15 12:20 | CP.PCM.HP ---
<DevanteSuni - Last Filed: 11/15/17 13:19> History of Present Illness - History of Present Illness History of Present Illness: Suni Low DO, PGY-2: Hospitalist Service CC: lower extremity pain 37 year old male with a past medical history of hypothyroidism, alcoholism, smoking and chronic lower extremity venous stasis who presents with leg swelling , some associated pain, and difficulty ambulating in the setting of becoming homeless on the tenth of this month. He reports that his his legs have been swollen in the past, and worse in fact, but since they have also been sun burnt given he stays out for prolonged periods of time he has had trouble walking. He also reports drinking at least 10 shots of vodka in a day and smoking 1/2 pack a day since [place]. He reports if he stops drinking he gets the chills. He denies any history of seizures. He reports he stopped taking his Levothyroxine about a year ago due to inability to afford/see a physician. He denies any excess lethargy, fatigue, constipation, depression, or skin changes aside from being sun burnt and not having any hair on his body. 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 He reports working there for 6 years. He denies any fever, chills, nausea, vomiting , headache, unilateral weakness or numbness, or easy bruising or bleeding, diarrhea, or visual changes. He does admits to numbness and tingling in the bilateral lower extremities. PMH: hypothyroidism, alcoholism, smoking, history of lower extremity cellulitis PSH: denies Allergies: NKA FH: Father had Diabetes and heart problems, Mother of breast cancer Social: Homeless, lost job 1.5 months ago, smokes 1/2 pack a day, drinks 10 shots of vodka each day for the past 2 years Present on Admission - Present on Admission Any Indicators Present on Admission: No Review of Systems - Review of Systems All systems: reviewed and no additional remarkable complaints except (as per HPI ) Past Patient History - Infectious Disease Hx of Infectious Diseases: None - Tetanus Immunizations Tetanus Immunization: Unknown - Past Medical History & Family History Past Medical History?: Yes - Past Social History Smoking Status: Light Smoker < 10 Cigarettes Daily - CARDIAC Hx Cardiac Disorders: No - PULMONARY Hx Respiratory Disorders: No - NEUROLOGICAL Hx Neurological Disorder: No - HEENT Hx HEENT Problems: No - RENAL Hx Chronic Kidney Disease: No - ENDOCRINE/METABOLIC Hx Endocrine Disorders: Yes Hx Hypothyroidism: Yes - HEMATOLOGICAL/ONCOLOGICAL Hx Blood Disorders: No - INTEGUMENTARY Hx Dermatological Problems: Yes Hx Cellulitis: Yes (recurrent bilateral LE cellulitis) - MUSCULOSKELETAL/RHEUMATOLOGICAL Hx Falls: Yes - GASTROINTESTINAL Hx Gastrointestinal Disorders: No - GENITOURINARY/GYNECOLOGICAL Hx Genitourinary Disorders: No - PSYCHIATRIC Hx Substance Use: No - SURGICAL HISTORY Hx Surgeries: No - ANESTHESIA Hx Anesthesia: No Meds Allergies/Adverse Reactions: Allergies Allergy/AdvReac Type Severity Reaction Status Date / Time No Known Allergies Allergy Verified 11/15/17 06:32 Physical Exam - Constitutional Appears: Unkempt - Head Exam Head Exam: ATRAUMATIC, NORMOCEPHALIC Additional comments: left face appears more swollen than right - Eye Exam Eye Exam: Conjunctival injection (right eye), EOMI, Periorbital swelling - ENT Exam ENT Exam: Mucous Membranes Moist, Normal Oropharynx - Neck Exam Neck exam: Negative for: Tenderness, Thyromegaly Additional comments: sun burnt - Respiratory Exam Respiratory Exam: Clear to Auscultation Bilateral, NORMAL BREATHING PATTERN. absent: Accessory Muscle Use, Wheezes - Cardiovascular Exam Cardiovascular Exam: RRR, +S1, +S2 - GI/Abdominal Exam GI & Abdominal Exam: Normal Bowel Sounds, Soft Additional comments: liver edge palpated 4 cm below right costal margin - Extremities Exam Extremities exam: Negative for: calf tenderness Additional comments: non- pitting edema, sun-burnt appearance that is well demarcated from the line of the patients socks up to the knees - Back Exam Back exam: NORMAL INSPECTION - Neurological Exam Neurological exam: Alert, CN II-XII Intact - Psychiatric Exam Psychiatric exam: Normal Affect, Normal Mood - Skin Additional comments: sun burnt on face, neck, forearms, and legs from ankle line up to knees Results - Vital Signs Recent Vital Signs: Last Vital Signs Temp 97.8 F 11/15/17 09:04 Pulse 65 11/15/17 12:02 Resp 18 11/15/17 12:02 BP 109/78 11/15/17 12:02 Pulse Ox 98 11/15/17 10:36 - Labs Result Diagrams: 11/15/17 09:00 11/15/17 09:00 Assessment & Plan - Assessment and Plan (Free Text) Assessment: 37 year old male with a past medical history of hypothyroidism, alcoholism, tobacco use who presents with leg pain and swelling secondary to chronic venous stasis with superimposed sun burn. In the ED he was found with an blood alcohol level of 258, transaminitis, hypokalemia, and hypomagnesemia. Given the patient' s high risk of arrhythmias with his electrolyte disturbances and impending alcohol withdrawal, he will need to monitored via telemetry. Plan: 1) Chronic venous stasis with superimposed sun burn in the setting of homelessness - Lower extremity Dopplers performed, interpretation pending - HgbA1c, B12, and folate levels - Calamime cream to be applied BID to afffected areas - CPK ordered, will follow up 2) Hypothyroidism secondary to radioablation and non-compliance - TSH and Free T4 ordered - Levothyroxine to be dosed as 1.63 mcg/kg/day, unless patient has cardiovascular disease, in which case would start on 50 mcg PO daily 3) Hypomagnesemia and hypokalemia - Initial Magnesium was 0.7 and initial potassium was 3.1 - 60 mEq of Potassium given in ED - 2 gm of Magnesium Sulfate given in ED - Recheck Magnesium in the PM 4) Elevated LFTs likely secondary to alcohol use - Abdominal US performed, pending interpretation - Hepatitis panel ordered - Monitor via serial CMPs 5) Pancytopenia likely secondary to myelosuppresive effect from chronic alcohol abuse - Abdominal US - Will monitor with daily CBCs 6) Alcohol withdrawal in an alcoholic - Ativan 2 mg q4h PRN - Ativan 2 mg q6h DANIELITO starting at 18:00 - Banana bag x 2 then to start PO MV, Folic acid, and Thiamine tomorrow 7) DVT/GI prophylaxis - Lovenox 40 mg SC Daily - Pepcid 20 mg HS 8) Homeless - Social work referral appreciated Case reviewed and discussed with attending physician, Dr. Ponce - Date & Time Date: 11/15/17 Time: 13:20 <Kaya Ponce - Last Filed: 11/15/17 13:40> Results - Vital Signs Recent Vital Signs: Last Vital Signs Temp 97.9 F 11/15/17 12:54 Pulse 65 11/15/17 12:54 Resp 18 11/15/17 12:54 BP 110/78 11/15/17 12:54 Pulse Ox 100 11/15/17 12:54 - Labs Result Diagrams: 11/15/17 09:00 11/15/17 09:00 Attending/Attestation - Attestation I have personally seen and examined this patient.: Yes I have fully participated in the care of the patient.: Yes I have reviewed all pertinent clinical information: Yes Notes (Text): 11/15/17 13:33 37 year old male with past medical history of hypothyroidism, chronic alcohol abuse and homelessness who presents with lower leg swelling and alcohol intoxication. Alcohol level is 258. He is started on banana bag and ativan prn for possible impending withdrawal symptoms. He was counselled on alcohol cessation. He has chronic venous stasis with superimposed sun burn in lower legs and also face / neck line. Can start calamine cream and monitor. Lower extremity dopplers ordered to rule out DVT. No acute cellulitis. PT evaluation is requested. Will replete and repeat potassium and magnesium. Transaminitis and pancytopenia likely secondary to chronic ETOH abuse. Will continue to monitor closely and obtain abdominal ultrasound and hepatitis panel. Will also check TSH given history of hypothyroidism and medication noncompliance. CPK level ordered to rule out rhabdomyolysis. antisqueak worker evaluation. Kaya Ponce MD Hospitalist.
[2017-11-15] MEDS ORDERED: Calamine-Zinc Oxide Lotion (120 ml) TOP SCH (13:30)
[2017-11-15 13:49] LABS: FREE T4 < 0.07 ng/dL (0.78-2.19)
[2017-11-15 14:12] LABS: CK MB% 0.3 % (2.5-3.0); CK-MB 7.8 ng/mL (0.0-3.6)
--- NOTE | 2017-11-15 14:52 | US ---
Date of service: 11/15/2017 HISTORY: Elevated LFTs, thrombocytopenia COMPARISON: None. TECHNIQUE: Sonographic evaluation of the abdomen. FINDINGS: LIVER: Liver measures approximately 16 cm. Liver demonstrates smooth contour however increased echotexture likely due to fatty infiltration however other infiltrative hepatic cellular disease process not excluded. No obvious hepatic mass or collection seen on images presented. No significant intrahepatic biliary ductal dilatation. GALLBLADDER: Unremarkable. No gallstones.Trace ascites adjacent to gallbladder. No no evidence of sonographic Luo sign 3 COMMON BILE DUCT: Measures 2.7 mm. No stones. No dilatation. PANCREAS: Unremarkable as visualized. No mass. No ductal dilatation. RIGHT KIDNEY: Measures 11.1 x 4.6x 6.4cm. Normal echogenicity. No calculus, mass, or hydronephrosis. LEFT KIDNEY: Measures 9.8 x 5.4 x 5.8 exitcm. Normal echogenicity. No calculus, mass, or hydronephrosis. SPLEEN: Normal in size and contour. No mass. AORTA: No aneurysmal dilatation. IVC: Unremarkable. OTHER FINDINGS: None. IMPRESSION: Liver exhibits increased echotexture likely due to fatty infiltration however other infiltrative hepatic cellular disease process not excluded. Trace ascites adjacent to gallbladder.
[2017-11-15 17:00] LABS: HEPATITIS B SURFACE AG Negative (NEGATIVE)
[2017-11-15 17:06] LABS: HEPATITIS A IGM NEGATIVE (NEGATIVE); HEPATITIS B CORE AB NEGATIVE (NEGATIVE)
[2017-11-15] MEDS: Calamine-Zinc Oxide Lotion (120 ml) TOP SCH (17:09)
[2017-11-15 17:18] LABS: HEPATITIS C ANTIBODY NEGATIVE (NEGATIVE)
[2017-11-15 17:25] LABS: FOLATE 4.5 ng/mL
--- NOTE | 2017-11-15 19:49 | US ---
HISTORY: Leg pain and swelling. Evaluate for DVT PHYSICIAN(S): Enrique Ocasio MD. TECHNIQUE: Duplex sonography and color-flow Doppler with graded compression were used to evaluate the deep venous systems of both lower extremities. FINDINGS: The visualized deep venous systems of both lower extremities are sonographically normal and compressible. Normal wave forms and augmentation are seen. There is no sonographic evidence for deep venous thrombosis in the visualized segments of both lower extremities. IMPRESSION: No sonographic evidence for deep venous thrombosis in the visualized segments of both lower extremities.
[2017-11-15] MEDS: Sodium Chloride 0.9% 1,000 ML IV SCH (20:52)
[2017-11-16] MEDS: Sodium Chloride 0.9% 1,000 ML IV SCH ×3 (03:40→19:05)
[2017-11-16] MEDS ORDERED: Levothyroxine 125 MCG TAB PO SCH (06:00)
[2017-11-16 06:26] LABS: BASO # 0.01 K/mm3 (0.0-2.0); BASO % 0.3 % (0.0-3.0); EOS % 0.9 % (1.5-5.0); GRAN # 1.81 (1.4-6.5); GRAN % 54.9 % (50.0-68.0); LYMPH % 30.9 % (22.0-35.0); MEAN CORPUSCULAR HEMOGLOBIN 36.4 pg (25.0-35.0); MEAN CORPUSCULAR HGB CONC 35.7 g/dl (31.0-37.0); MEAN PLATELET VOLUME 10.8 fl (7.0-11.0); MONO # 0.4 (0.1-0.6); RBC 2.47 10^6/uL (3.5-6.1); RED CELL DISTRIBUTION WIDTH 12.5 % (11.5-14.5); WHITE BLOOD COUNT 3.3 10^3/ul (4.5-11.0)
[2017-11-16 06:36] LABS: ALB/GLOB RATIO 1.5 (1.1-1.8); ALBUMIN 3.9 g/dL (3.0-4.8); ALT/SGPT 65 U/L (7-56); AST/SGOT 255 U/L (17-59); BLOOD UREA NITROGEN 13 mg/dL (7-21); CALCIUM 8.8 mg/dL (8.4-10.5); GFR NON-AFRICAN AMERICAN > 60
[2017-11-16 06:57] LABS: FREE T4 < 0.07 ng/dL (0.78-2.19)
[2017-11-16 07:17] LABS: CK-MB 4.2 ng/mL (0.0-3.6)
[2017-11-16] MEDS ORDERED: Potassium Chloride 20 mEq ER Tab PO ONE (07:34)
[2017-11-16] MEDS: Magnesium 2 gm/50 ml NS 2 GM/50 ML BAG IVPB SCH ×2 (08:42→11:45)
[2017-11-16] MEDS: Multivitamin Therapeutic Tab PO SCH (08:43)
[2017-11-16] MEDS: Calamine-Zinc Oxide Lotion (120 ml) TOP SCH ×2 (09:02→18:29)
[2017-11-16] MEDS: Enoxaparin 40 mg Syringe SC SCH (09:03)
--- NOTE | 2017-11-16 13:53 | CP.PCM.PN ---
<Ezio Onofre - Last Filed: 11/16/17 15:09> Subjective - Date & Time of Evaluation Date of Evaluation: 11/16/17 Time of Evaluation: 13:51 - Subjective Subjective: Ezio Onofre D.O PGY-1, Internal Medicine progress note for Dr. Matos Patient was examined at bedside, no acute overnight events. Patient complains of bilateral leg pain only when he is ambulating. Denies fevers, chills, chest pain, shortness of breath, abdominal pain, N/V/D. Objective - Vital Signs/Intake and Output Vital Signs (last 24 hours): Temp Pulse Resp BP Pulse Ox 99.6 F 70 19 115/81 95 11/16/17 08:38 11/16/17 08:38 11/16/17 08:38 11/16/17 08:38 11/16/17 08:38 Intake and Output: 11/16/17 11/16/17 06:59 18:59 Intake Total 1970 Output Total 950 Balance 1020 - Medications Medications: Current Medications Calamine (Calamine Lotion) 0 ml TOP BID REPLACED BY [facility] Last Admin: 11/16/17 09:02 Dose: 120 ml Enoxaparin Sodium (Lovenox) 40 mg SC DAILY REPLACED BY [facility] PRN Reason: Protocol Last Admin: 11/16/17 09:03 Dose: 40 mg Famotidine (Pepcid) 20 mg PO HS REPLACED BY [facility] Last Admin: 11/15/17 21:26 Dose: 20 mg Folic Acid (Folic Acid) 1 mg PO DAILY REPLACED BY [facility] Last Admin: 11/16/17 09:03 Dose: 1 mg Sodium Chloride (Sodium Chloride 0.9%) 1,000 mls @ 150 mls/hr IV .Q6H40M REPLACED BY [facility] Last Admin: 11/16/17 11:45 Dose: 150 mls/hr Levothyroxine Sodium (Synthroid) 150 mcg PO ACB DANIELITO Lorazepam (Ativan) 2 mg IVP Q4H PRN; Protocol PRN Reason: Symptoms of alcohol withdrawl Lorazepam (Ativan) 2 mg IVP Q6H DANIELITO PRN Reason: Protocol Last Admin: 11/16/17 11:44 Dose: 2 mg Multivitamins (Thera Tab) 1 tab PO 0800 REPLACED BY [facility] Last Admin: 11/16/17 08:43 Dose: 1 tab Thiamine HCl (Vitamin B1 Tab) 100 mg PO DAILY DANIELITO Last Admin: 11/16/17 09:03 Dose: 100 mg - Labs Labs: 11/16/17 05:50 11/16/17 05:50 PT 11.4 SECONDS (9.4-12.5) 11/15/17 09:00 INR 0.99 11/15/17 09:00 APTT 31.2 Seconds (25.1-36.5) 11/15/17 09:00 - Constitutional Appears: No Acute Distress - Head Exam Head Exam: ATRAUMATIC, NORMAL INSPECTION Additional comments: Mild facial swelling noted - Eye Exam Eye Exam: Normal appearance, PERRL - ENT Exam ENT Exam: Mucous Membranes Moist - Respiratory Exam Respiratory Exam: Clear to Ausculation Bilateral. absent: Rales, Rhonchi, Wheezes, Respiratory Distress - Cardiovascular Exam Cardiovascular Exam: REGULAR RHYTHM, +S1, +S2. absent: Gallop, Rubs, Murmur - GI/Abdominal Exam GI & Abdominal Exam: Soft, Normal Bowel Sounds. absent: Tenderness - Extremities Exam Extremities Exam: Calf Tenderness. absent: Normal Inspection, Pedal Edema Additional comments: Bilateral lower extremities warm, erythematous, with sun-burnt appearance that is well demarcated from the line of the patients socks up to the knees. No pitting edema - Neurological Exam Neurological Exam: Alert, Awake, Oriented x3 - Psychiatric Exam Psychiatric exam: Normal Affect, Normal Mood - Skin Skin Exam: Dry, Intact, Normal Color, Warm Assessment and Plan - Assessment and Plan (Free Text) Assessment: Mr. Castorena is a 37 year old male with a past medical history of chronic lower extremity venous stasis, hypothyroidism, alcohol abuse, and smoking who was admitted for bilateral lower extremity pain and alcohol withdrawal symptoms. Plan: Lower extremity Pain - Most likely secondary to chronic venous stasis with superimposed sun burn - Lower extremity Dopplers: No DVT - C/w Calamime cream to be applied BID to afffected areas - CPK: 1295- downtrending Alcohol withdrawal symptoms - Alcohol level was 258 on admission - C/w Ativan 2 mg q4h PRN - C/w Ativan 2 mg q6h DANIELITO - CIWA protocol- last CIWA was 5 - Seizure and fall protocols - S/p Banana bag x 2 - C/w Multivitamin, Folic acid, and Thiamine - C/w IVF: NS at 150mls/hr Hypothyroidism secondary to radioablation and non-compliance - TSH: 91.6 and Free T4: <0/07 - Endocrinology consulted, Dr. Enamorado - C/w Levothyroxine 150mg PO ACB Hypomagnesemia and hypokalemia - Magnesium was 0.6 and potassium was 3.4 today - 40 mEq of Potassium given - 2 gm of Magnesium Sulfate given - Monitor Magnesium and potassium levels - EKG (11/16): NSR at 69 bpm (preliminary report) - Patient monitored on telemetry Elevated LFTs - Most likely secondary to alcohol use - ALT/AST: 65/255- downtrending - Abdominal US: Liver fatty infiltration. Trace ascites adjacent to gall bladder - Hepatitis panel: negative - Monitor via serial CMPs Pancytopenia - Most likely secondary to myelosuppresive effect from chronic alcohol abuse - Will monitor with daily CBCs DVT/GI prophylaxis - Lovenox 40 mg SC Daily - Pepcid 20 mg HS Homelessness - Social work referral Case reviewed and discussed with attending physician, Dr. Matos <Nan Matos R - Last Filed: 11/16/17 20:23> Objective - Vital Signs/Intake and Output Vital Signs (last 24 hours): Temp Pulse Resp BP Pulse Ox 99.6 F 87 19 115/81 95 11/16/17 08:38 11/16/17 18:00 11/16/17 08:38 11/16/17 08:38 11/16/17 08:38 - Medications Medications: Current Medications Calamine (Calamine Lotion) 0 ml TOP BID REPLACED BY [facility] Last Admin: 11/16/17 18:29 Dose: 1 ml Enoxaparin Sodium (Lovenox) 40 mg SC DAILY REPLACED BY [facility] PRN Reason: Protocol Last Admin: 11/16/17 09:03 Dose: 40 mg Famotidine (Pepcid) 20 mg PO HS REPLACED BY [facility] Last Admin: 11/15/17 21:26 Dose: 20 mg Folic Acid (Folic Acid) 1 mg PO DAILY REPLACED BY [facility] Last Admin: 11/16/17 09:03 Dose: 1 mg Sodium Chloride (Sodium Chloride 0.9%) 1,000 mls @ 150 mls/hr IV .Q6H40M REPLACED BY [facility] Last Admin: 11/16/17 11:45 Dose: 150 mls/hr Levothyroxine Sodium (Synthroid) 150 mcg PO ACB DANIELITO Lorazepam (Ativan) 2 mg IVP Q4H PRN; Protocol PRN Reason: Symptoms of alcohol withdrawl Lorazepam (Ativan) 2 mg IVP Q6H DANIELITO PRN Reason: Protocol Last Admin: 11/16/17 17:39 Dose: 2 mg Multivitamins (Thera Tab) 1 tab PO 0800 REPLACED BY [facility] Last Admin: 11/16/17 08:43 Dose: 1 tab Thiamine HCl (Vitamin B1 Tab) 100 mg PO DAILY REPLACED BY [facility] Last Admin: 11/16/17 09:03 Dose: 100 mg - Labs Labs: 11/16/17 05:50 11/16/17 16:32 PT 11.4 SECONDS (9.4-12.5) 11/15/17 09:00 INR 0.99 11/15/17 09:00 APTT 31.2 Seconds (25.1-36.5) 11/15/17 09:00 Attending/Attestation - Attestation I have personally seen and examined this patient.: Yes I have fully participated in the care of the patient.: Yes I have reviewed all pertinent clinical information, including history, physical exam and plan: Yes Notes (Text): Patient seen and examined by me at 11:15AM. Case including HPI, physical exam, and assessment and plan discussed with resident. Agree with above with following additions/corrections. Patient is a 37 year old male with past medical history significant alcohol abuse, tobacco abuse, hypothyroidism, and lower extremity venous stasis that presented to the emergency room with lower extremity pain and difficulty ambulating. Patient states he is feeling ok. Complains of lower extremity pain. States he is unable to walk because of the pain. States he doesn't have pain at rest. Pain is only with movement. No chest pain or shortness of breath. No fevers or chills. No headaches or dizziness. No dysuria. No nausea, vomiting, or abdominal pain. Physical exam: Gen: Awake and alert sitting up in bed in no acute distress HEENT: Normocephalic, atraumatic. Extraocular muscles intact, pupils equal reactive. No scleral icterus. Oropharynx is pink and moist. Neck is supple. Cardiovascular: Normal rhythm. Normal S1, S2. No murmurs, rubs, or gallops appreciated Pulmonary: Normal respiratory effort. No rhonchi, rales or wheezing appreciated. Gastrointestinal: Soft, nontender, nondistended, positive bowel sounds all 4 quadrants, no guarding. Musculoskeletal: Moves all extremities. Bilateral lower extremity edema. Central nervous system: AAO x 3. CN 2-12 grossly intact. Dermatologic: Skin warm and dry, Bilateral lower extremity chronic venous stasis color changes with superimposed sun burn, also noticed on face and neck. Assessment and plan: Patient is a 37 year old male with past medical history significant alcohol abuse, tobacco abuse, hypothyroidism, and lower extremity venous stasis that presented to the emergency room with lower extremity pain and difficulty ambulating. 1. ETOH abuse/intoxication/withdrawal. Continue CIWA protocol. Continue Ativan. Continue IV fluids. Continue Thiamine, folic acid, multivitamin. Patient counseled at length on cessation. Monitor for withdrawal symptoms. Supportive care. Fall precautions. 2. Hypothyroidism. Uncontrolled. Likely secondary to medication noncompliance. Patient counseled on importance of compliance. Endocrinology consulted, recommendations appreciated. Continue levothyroxine 150mcg PO daily 3. Bilateral lower extremity edema, sunburn. Continue with calamine cream. Bilateral lower extremity venous dopplers negative for DVT. Continue with physical therapy. 4. Elevated LFTS. Secondary to ETOH abuse. Downtrending. Abdominal ultrasound per radiologist shows liver exhibits increased echotexture likely due to fatty infiltration, however other infiltrative hepatic cellular disease process not excluded; trace ascites adjacent to gallbladder. Hep panel negative 5. Pancytopenia. Likely secondary to EtoH abuse. Continue to monitor for now 6. Hypokalemia, hypomagnesemia. Continue to replete. follow up repeat labs. 7. Tobacco abuse. Counseled on cessation 8. Homelessness. workers compensation adjuster following. Case was discussed in detail with the patient regarding current diagnosis and treatment plan.
[2017-11-16] MEDS ORDERED: Magnesium 2 gm/50 ml NS 2 GM/50 ML BAG IVPB ONE (15:05)
--- NOTE | 2017-11-16 15:13 | CON ---
Copied To: Marivel Enamorado MD Attending MD: Marivel Enamorado MD DATE: 11/16/2017 ENDOCRINOLOGY CONSULT LOCATION: In room 372. HISTORY OF PRESENT ILLNESS: This is a 37-year-old male, presenting here with lower extremity swelling and restricted ambulation and is now being referred for endocrine evaluation because of moderate hypothyroidism. He actually discontinued his thyroid medications over a month ago because of insurance constraints and inability to go for medical followup and testing. PAST MEDICAL HISTORY: As mentioned above, history of hypothyroidism, on levothyroxine replacement therapy; history of hypertension and dyslipidemia; history of chronic lower extremity venous stasis and swelling as noted. FAMILY HISTORY: Positive for hypertension and heart disease. SOCIAL HISTORY: Admits to chronic alcoholism and still activity drinking vodka very few days as noted. Also admits to nicotine dependence, consuming half a pack a day of cigarettes. He also has been recently homeless at this time with lack of medical insurance with the aforementioned alcohol and nicotine dependence. REVIEW OF SYSTEMS: Admits to generalized body weakness with progressive bouts of dizziness and lightheadedness and suboptimal energy level. No chest pains, but admits to progressive shortness of breath, especially on exertion. His oral intake is variable with nausea, dyspepsia and habitual constipation. Also admits to lower extremity swelling and painful paresthesias. PHYSICAL EXAMINATION: GENERAL: This is an average-built male, in no apparent distress. VITAL SIGNS: Blood pressure of 150/90; pulse of 60 beats per minute, regular; temperature 98; respirations 20; height is 5 feet 10 inches; weight is 170 pounds. HEENT: Head normocephalic. Eyes anicteric with pink conjunctivae. Funduscopy not possible at this time. Ears, nose and throat otherwise normal. NECK: Supple. Thyroid gland is normal in size. No carotid bruits or any cervical adenopathy. CARDIOPULMONARY: Some adynamic precordium. S1, S2 is rapid and regular. LUNGS: Clear to auscultation. ABDOMEN: Flat, soft with positive bowel sounds. EXTREMITIES: There is +2 bipedal edema. Pulses are +2 bilaterally. LABORATORY DATA: Chemistry showed a BUN of 13, sodium 139, potassium 3.4, chloride 98, CO2 of 30, glucose 77 and creatinine 0.8. His creatinine kinase is 1295 and initially it was 2629. His TSH is 91.6 with a free T4 of less than 0.07. ASSESSMENT: This is a 37-year-old male with overt moderate hypothyroidism both historically, clinically and biochemically related to recent drug omission with underlying autoimmune thyroiditis. PLAN OF MANAGEMENT: We will modify and titrate his levothyroxine to a higher dose of 150 mcg daily before breakfast as ordered. We will obtain a comprehensive thyroid hormonal profile and titrate his dose regimen accordingly. We will obtain serial chemistries and supplement accordingly as needed and just to emphasize the fact that levothyroxine is very cheap and affordable and costs only 10 dollars for a 3-month supply [facility]. His cigarettes and his vodka alcohol cost triple the amount of the levothyroxine medications, so it is really inexcusable for him to ran out of medications. Marivel Enamorado MD
[2017-11-16 16:56] LABS: ALB/GLOB RATIO 1.6 (1.1-1.8); ALBUMIN 3.9 g/dL (3.0-4.8); ALT/SGPT 57 U/L (7-56); AST/SGOT 212 U/L (17-59); BLOOD UREA NITROGEN 13 mg/dL (7-21); CALCIUM 8.6 mg/dL (8.4-10.5); GFR NON-AFRICAN AMERICAN > 60
--- NOTE | 2017-11-16 21:12 | CARD ---
APPROVED REPORT Date of service: 11/16/2017 EKG Measurement Heart [id number] <Conclusion> Normal sinus rhythm Cannot rule out Anterior infarct, age undetermined Abnormal ECG
[2017-11-17] MEDS: Sodium Chloride 0.9% 1,000 ML IV SCH ×2 (01:25→09:31)
[2017-11-17 06:34] LABS: BASO # 0.01 K/mm3 (0.0-2.0); BASO % 0.2 % (0.0-3.0); EOS % 0.9 % (1.5-5.0); GRAN # 2.8 (1.4-6.5); GRAN % 61.9 % (50.0-68.0); HEMOGLOBIN 9.9 g/dL (14.0-18.0); LYMPH # 1.1 (1.2-3.4); LYMPH % 23.8 % (22.0-35.0); MEAN CELL VOLUME 103.3 fl (80.0-105.0); MEAN CORPUSCULAR HGB CONC 34.9 g/dl (31.0-37.0); MEAN PLATELET VOLUME 10.7 fl (7.0-11.0); MONO # 0.6 (0.1-0.6); MONO % 13.2 % (1.0-6.0); RBC 2.75 10^6/uL (3.5-6.1); RED CELL DISTRIBUTION WIDTH 12.7 % (11.5-14.5); WHITE BLOOD COUNT 4.5 10^3/ul (4.5-11.0)
[2017-11-17 06:49] LABS: ALB/GLOB RATIO 1.4 (1.1-1.8); ALBUMIN 4.1 g/dL (3.0-4.8); ALT/SGPT 58 U/L (7-56); AST/SGOT 213 U/L (17-59); BLOOD UREA NITROGEN 13 mg/dL (7-21); CALCIUM 8.4 mg/dL (8.4-10.5); GFR NON-AFRICAN AMERICAN > 60
[2017-11-17 07:07] LABS: CK-MB 3.8 ng/mL (0.0-3.6)
--- NOTE | 2017-11-17 09:06 | CP.PCM.PN ---
Subjective - Date & Time of Evaluation Date of Evaluation: 11/17/17 Time of Evaluation: 07:30 - Subjective Subjective: Endocrinology progress note: Patient seen and examined at bedside. No acute events overnight. Patient states that he feels a little weak. He states that his lower extremity swelling has gotten a little bit better. No other complaints. 12 point ROS was performed and negative other than stated above. Objective - Vital Signs/Intake and Output Vital Signs (last 24 hours): Temp Pulse Resp BP Pulse Ox 98.1 F 88 20 127/96 H 96 11/17/17 08:14 11/17/17 08:14 11/17/17 08:14 11/17/17 08:14 11/17/17 08:14 Intake and Output: 11/17/17 11/17/17 06:59 18:59 Intake Total 3380 Output Total 1200 Balance 2180 - Medications Medications: Current Medications Calamine (Calamine Lotion) 0 ml TOP BID [facility] Last Admin: 11/16/17 18:29 Dose: 1 ml Enoxaparin Sodium (Lovenox) 40 mg SC DAILY [facility] PRN Reason: Protocol Last Admin: 11/16/17 09:03 Dose: 40 mg Famotidine (Pepcid) 20 mg PO HS [facility] Last Admin: 11/16/17 21:01 Dose: 20 mg Folic Acid (Folic Acid) 1 mg PO DAILY [facility] Last Admin: 11/16/17 09:03 Dose: 1 mg Sodium Chloride (Sodium Chloride 0.9%) 1,000 mls @ 150 mls/hr IV .Q6H40M [facility] Last Admin: 11/17/17 01:25 Dose: 150 mls/hr Levothyroxine Sodium (Synthroid) 150 mcg PO ACB [facility] Lorazepam (Ativan) 2 mg IVP Q4H PRN; Protocol PRN Reason: Symptoms of alcohol withdrawl Lorazepam (Ativan) 2 mg IVP Q6H [facility] PRN Reason: Protocol Last Admin: 11/17/17 05:20 Dose: 2 mg Multivitamins (Thera Tab) 1 tab PO 0800 [facility] Last Admin: 11/16/17 08:43 Dose: 1 tab Nicotine (Nicoderm Cq) 1 patch TD DAILY [facility] Thiamine HCl (Vitamin B1 Tab) 100 mg PO DAILY [facility] Last Admin: 11/16/17 09:03 Dose: 100 mg - Labs Labs: 11/17/17 06:00 11/17/17 06:00 PT 11.4 SECONDS (9.4-12.5) 11/15/17 09:00 INR 0.99 11/15/17 09:00 APTT 31.2 Seconds (25.1-36.5) 11/15/17 09:00 - Constitutional Appears: No Acute Distress - Head Exam Head Exam: ATRAUMATIC, NORMOCEPHALIC - Eye Exam Eye Exam: EOMI - ENT Exam ENT Exam: Mucous Membranes Moist - Respiratory Exam Respiratory Exam: Clear to Ausculation Bilateral. absent: Wheezes - Cardiovascular Exam Cardiovascular Exam: REGULAR RHYTHM, +S1, +S2 - GI/Abdominal Exam GI & Abdominal Exam: Soft. absent: Tenderness - Extremities Exam Extremities Exam: absent: Calf Tenderness, Pedal Edema Additional comments: Bilateral lower extremity erythema with mild edema - Neurological Exam Neurological Exam: Alert, Awake, Oriented x3 - Psychiatric Exam Psychiatric exam: Normal Mood - Skin Skin Exam: Erythema, Warm Assessment and Plan - Assessment and Plan (Free Text) Assessment: 37-year-old male past medical history of hypothyroidism but was noncompliant and has not been taking his medications for the past 1 year, presents with moderate hypothyroidism. Continue levothyroxine at 150 mcg daily Educated the patient regarding importance of being compliant with his medications at home. I told the patient that he can get his medications for cheap at [facility], 90 days worth of levothyroxine for $10. Patient verbalized understanding. Replete electrolytes as needed Serial CMPs Case and plan was reviewed and discussed with Dr. Enamorado. Loco Davis, PGY 3
[2017-11-17] MEDS: Enoxaparin 40 mg Syringe SC SCH (09:18)
[2017-11-17] MEDS: Calamine-Zinc Oxide Lotion (120 ml) TOP SCH ×2 (09:30→18:09)
[2017-11-17] MEDS: Multivitamin Therapeutic Tab PO SCH (09:31)
[2017-11-17] MEDS: Levothyroxine 150 MCG TAB PO SCH (09:42)
--- NOTE | 2017-11-17 11:17 | PN ---
Copied To: Marivel Enamorado MD Attending MD: Marivel Enamorado MD DATE: 11/17/2017 ENDO FOLLOWUP NOTE LOCATION: In room 372. SUBJECTIVE: This is a 37-year-old male with recent overt hypothyroidism, presenting here with generalized body weakness and lower extremity edema and restricted ambulation and is now being followed closely for metabolic management. He also has pancytopenia and is undergoing hematologic workup as noted. His latest chemistry showed a BUN of 13, sodium 136, potassium 4, chloride 100, CO2 of 26, glucose 82 and creatinine 0.7. His latest thyroid study showed a free T4 of less than 0.07 with a TSH of 91.6. His thyroid studies ordered for today are pending as noted. ASSESSMENT: This is a 37-year-old male with overt moderate hypothyroidism both historically, clinically and biochemically related to drug omission with underlying autoimmune thyroiditis. PLAN OF MANAGEMENT: We will continue the modified and higher dosing of the levothyroxine given as 150 mcg once daily as ordered and we will keep the same dosing for now to allow for dose equilibration. We are waiting the comprehensive thyroid hormonal profile and also the thyroid antibodies, which will confirm and/or indicate the presence of underlying thyroid autoimmunity. We will obtain serial chemistries and supplement accordingly as needed. We will follow. Marivel Enamorado MD
--- NOTE | 2017-11-17 13:22 | CP.PCM.PN ---
Objective - Vital Signs/Intake and Output Vital Signs (last 24 hours): Temp Pulse Resp BP Pulse Ox 98.1 F 88 20 127/96 H 96 11/17/17 08:14 11/17/17 08:14 11/17/17 08:14 11/17/17 08:14 11/17/17 08:14 Intake and Output: 11/17/17 11/17/17 06:59 18:59 Intake Total 3380 Output Total 1200 Balance 2180 - Medications Medications: Current Medications Calamine (Calamine Lotion) 0 ml TOP BID [facility] Last Admin: 11/17/17 09:30 Dose: 120 ml Enoxaparin Sodium (Lovenox) 40 mg SC DAILY [facility] PRN Reason: Protocol Last Admin: 11/17/17 09:18 Dose: 40 mg Famotidine (Pepcid) 20 mg PO HS [facility] Last Admin: 11/16/17 21:01 Dose: 20 mg Folic Acid (Folic Acid) 1 mg PO DAILY [facility] Last Admin: 11/17/17 09:18 Dose: 1 mg Sodium Chloride (Sodium Chloride 0.9%) 1,000 mls @ 150 mls/hr IV .Q6H40M [facility] Last Admin: 11/17/17 09:31 Dose: 150 mls/hr Levothyroxine Sodium (Synthroid) 150 mcg PO ACB [facility] Last Admin: 11/17/17 09:42 Dose: 150 mcg Lorazepam (Ativan) 1 mg IVP Q4H PRN; Protocol PRN Reason: Symptoms of alcohol withdrawl Lorazepam (Ativan) 1 mg IVP Q6H [facility] PRN Reason: Protocol Last Admin: 11/17/17 12:10 Dose: 1 mg Multivitamins (Thera Tab) 1 tab PO 0800 [facility] Last Admin: 11/17/17 09:31 Dose: 1 tab Nicotine (Nicoderm Cq) 1 patch TD DAILY [facility] Last Admin: 11/17/17 09:18 Dose: 1 patch Thiamine HCl (Vitamin B1 Tab) 100 mg PO DAILY [facility] Last Admin: 11/17/17 09:42 Dose: 100 mg - Labs Labs: 11/17/17 06:00 11/17/17 06:00 PT 11.4 SECONDS (9.4-12.5) 11/15/17 09:00 INR 0.99 11/15/17 09:00 APTT 31.2 Seconds (25.1-36.5) 11/15/17 09:00
--- NOTE | 2017-11-17 14:10 | CP.PCM.PN ---
<Dorian Matos - Last Filed: 11/17/17 14:59> Subjective - Date & Time of Evaluation Date of Evaluation: 11/17/17 Time of Evaluation: 14:06 - Subjective Subjective: Dorian Matos DO PGY1 - Internal Medicine Customer Service Receptionist - Hospital Progress Note As per overnight nursing, patient attempted to consume a small bottle of vodka, and begin smoking in hospital. Patient still appears disoriented, difficult to interview at this time, requires redirection. Objective - Vital Signs/Intake and Output Vital Signs (last 24 hours): Temp Pulse Resp BP Pulse Ox 98.1 F 88 20 127/96 H 96 11/17/17 08:14 11/17/17 08:14 11/17/17 08:14 11/17/17 08:14 11/17/17 08:14 Intake and Output: 11/17/17 11/17/17 06:59 18:59 Intake Total 3380 Output Total 1200 Balance 2180 - Medications Medications: Current Medications Calamine (Calamine Lotion) 0 ml TOP BID [facility] Last Admin: 11/17/17 09:30 Dose: 120 ml Enoxaparin Sodium (Lovenox) 40 mg SC DAILY [facility] PRN Reason: Protocol Last Admin: 11/17/17 09:18 Dose: 40 mg Famotidine (Pepcid) 20 mg PO HS [facility] Last Admin: 11/16/17 21:01 Dose: 20 mg Folic Acid (Folic Acid) 1 mg PO DAILY [facility] Last Admin: 11/17/17 09:18 Dose: 1 mg Sodium Chloride (Sodium Chloride 0.9%) 1,000 mls @ 150 mls/hr IV .Q6H40M [facility] Last Admin: 11/17/17 09:31 Dose: 150 mls/hr Levothyroxine Sodium (Synthroid) 150 mcg PO ACB [facility] Last Admin: 11/17/17 09:42 Dose: 150 mcg Lorazepam (Ativan) 1 mg IVP Q4H PRN; Protocol PRN Reason: Symptoms of alcohol withdrawl Lorazepam (Ativan) 1 mg IVP Q6H [facility] PRN Reason: Protocol Last Admin: 11/17/17 12:10 Dose: 1 mg Multivitamins (Thera Tab) 1 tab PO 0800 [facility] Last Admin: 11/17/17 09:31 Dose: 1 tab Nicotine (Nicoderm Cq) 1 patch TD DAILY [facility] Last Admin: 11/17/17 09:18 Dose: 1 patch Thiamine HCl (Vitamin B1 Tab) 100 mg PO DAILY [facility] Last Admin: 11/17/17 09:42 Dose: 100 mg - Labs Labs: 11/17/17 06:00 11/17/17 06:00 PT 11.4 SECONDS (9.4-12.5) 11/15/17 09:00 INR 0.99 11/15/17 09:00 APTT 31.2 Seconds (25.1-36.5) 11/15/17 09:00 Physical Exam - Constitutional Appears: No Acute Distress - Head Exam Head Exam: ATRAUMATIC, NORMAL INSPECTION Additional comments: Mild facial swelling noted - Eye Exam Eye Exam: Has significant mucous drainage from both eyes; no conjunctival injection appreciated, PERRL - ENT Exam ENT Exam: Mucous Membranes Moist; - Respiratory Exam Respiratory Exam: Clear to Ausculation Bilateral. absent: Rales, Rhonchi, Wheezes, Respiratory Distress - Cardiovascular Exam Cardiovascular Exam: REGULAR RHYTHM, +S1, +S2. absent: Gallop, Rubs, Murmur - GI/Abdominal Exam GI & Abdominal Exam: Soft, Normal Bowel Sounds. absent: Tenderness - Extremities Exam Extremities Exam: Calf Tenderness. absent: Normal Inspection, Pedal Edema Additional comments: BL LE warm to touch, lotion applied to sun burnt areas which extend from feet all the way up to mid thigh well demarcated line. - Neurological Exam Neurological Exam: Alert, Awake, Oriented x3 - Psychiatric Exam Psychiatric exam: Disoriented - Skin Skin Exam: Dry, Intact, Normal Color, Warm Assessment and Plan - Assessment and Plan (Free Text) Assessment: Mr. Castorena is a 37 year old male with a past medical history of chronic lower extremity venous stasis, hypothyroidism, alcohol abuse, and smoking who was admitted for bilateral lower extremity pain and alcohol withdrawal symptoms. Plan: Lower extremity Pain - Most likely secondary to chronic venous stasis with superimposed sun burn - Lower extremity Dopplers: No DVT - C/w Calamime cream to be applied BID to afffected areas - CPK: 1295-->1170 downtrending Alcohol withdrawal symptoms - Alcohol level was 258 on admission; Repeat EtOH this AM was <10 - Decreased to Ativan 1 mg q4h PRN - Decreased to Ativan 1 mg q6h [facility] - CIWA protocol- last CIWA was 4 - Seizure and fall protocols - S/p Banana bag - C/w Multivitamin, Folic acid, and Thiamine - C/w IVF: NS at 150mls/hr Hypothyroidism secondary to radioablation and non-compliance - TSH: 91.6 and Free T4: <0.07 - Endocrinology consulted, Dr. Enamorado - C/w Levothyroxine 150mg PO ACB Hypomagnesemia and hypokalemia - Resolved Elevated LFTs - Most likely secondary to alcohol use - ALT/AST: 65/255- downtrending - Abdominal US: Liver fatty infiltration. Trace ascites adjacent to gall bladder - Hepatitis panel: negative - Monitor via serial CMPs Pancytopenia - Most likely secondary to myelosuppresive effect from chronic alcohol abuse - Will monitor with daily CBCs DVT/GI prophylaxis - Lovenox 40 mg SC Daily - Pepcid 20 mg HS Homelessness - Social work referral Dispo: Continued inpatient admission for management of EtOH withdrawal Patient seen, examined, and case discussed w/ attending physician Dr. Nan Matos DO PGY1 - Internal Medicine Customer Service Receptionist - Hospital Progress Note <Nan Matos R - Last Filed: 11/18/17 12:06> Objective - Vital Signs/Intake and Output Vital Signs (last 24 hours): Temp Pulse Resp BP Pulse Ox 98 F 93 H 20 117/84 96 11/18/17 08:10 11/18/17 10:00 11/18/17 08:10 11/18/17 08:10 11/18/17 08:10 Intake and Output: 11/18/17 11/18/17 06:59 18:59 Intake Total 0 Balance 0 - Medications Medications: Current Medications Calamine (Calamine Lotion) 0 ml TOP BID [facility] Last Admin: 11/18/17 09:38 Dose: 120 ml Enoxaparin Sodium (Lovenox) 40 mg SC DAILY [facility] PRN Reason: Protocol Last Admin: 11/18/17 09:36 Dose: 40 mg Famotidine (Pepcid) 20 mg PO HS [facility] Last Admin: 11/17/17 21:24 Dose: 20 mg Folic Acid (Folic Acid) 1 mg PO DAILY [facility] Last Admin: 11/18/17 09:36 Dose: 1 mg Levothyroxine Sodium (Synthroid) 150 mcg PO ACB [facility] Last Admin: 11/18/17 07:56 Dose: 150 mcg Lorazepam (Ativan) 1 mg IVP Q4H PRN; Protocol PRN Reason: Symptoms of alcohol withdrawl Lorazepam (Ativan) 1 mg IVP Q12H [facility] PRN Reason: Protocol Last Admin: 11/18/17 11:44 Dose: 1 mg Multivitamins (Thera Tab) 1 tab PO 0800 [facility] Last Admin: 11/18/17 07:56 Dose: 1 tab Nicotine (Nicoderm Cq) 1 patch TD DAILY [facility] Last Admin: 11/18/17 09:36 Dose: 1 patch Thiamine HCl (Vitamin B1 Tab) 100 mg PO DAILY [facility] Last Admin: 11/18/17 09:37 Dose: 100 mg Tobramycin Sulfate (Tobrex 0.3% Ophth Oint) 0 appl OU Q6H [facility] Last Admin: 11/18/17 09:38 Dose: 1 applic - Labs Labs: 11/18/17 05:30 11/18/17 05:30 PT 11.4 SECONDS (9.4-12.5) 11/15/17 09:00 INR 0.99 11/15/17 09:00 APTT 31.2 Seconds (25.1-36.5) 11/15/17 09:00 Attending/Attestation - Attestation I have personally seen and examined this patient.: Yes I have fully participated in the care of the patient.: Yes I have reviewed all pertinent clinical information, including history, physical exam and plan: Yes Notes (Text): Patient seen and examined by me at 11AM 11/17/17. Case including HPI, physical exam, and assessment and plan discussed with resident. Agree with above with following additions/corrections. Patient is a 37 year old male with past medical history significant alcohol abuse, tobacco abuse, hypothyroidism, and lower extremity venous stasis that presented to the emergency room with lower extremity pain and difficulty ambulating. Patient states he is feeling a little better. States legs feel a little better but still with pain. Patient was trying to drink alcohol overnight. Patients bad with vodka was removed from room. No chest pain or shortness of breath. No fevers or chills. No headaches or dizziness. No dysuria. No nausea, vomiting, or abdominal pain. Physical exam: Gen: Awake and alert sitting up in bed in no acute distress HEENT: Normocephalic, atraumatic. Extraocular muscles intact, pupils equal reactive. No scleral icterus. Positive discharge bilateral eyes. Oropharynx is pink and moist. Neck is supple. Cardiovascular: Normal rhythm. Normal S1, S2. No murmurs, rubs, or gallops appreciated Pulmonary: Normal respiratory effort. No rhonchi, rales or wheezing appreciated. Gastrointestinal: Soft, nontender, nondistended, positive bowel sounds all 4 quadrants, no guarding. Musculoskeletal: Moves all extremities. Bilateral lower extremity edema. Central nervous system: Alert and awake. Periods of confusion. CN 2-12 grossly intact, positive tremors bilateral upper extremities. Dermatologic: Skin warm and dry, Bilateral lower extremity chronic venous stasis color changes with superimposed sun burn, also noticed on face and neck. Assessment and plan: Patient is a 37 year old male with past medical history significant alcohol abuse, tobacco abuse, hypothyroidism, and lower extremity venous stasis that presented to the emergency room with lower extremity pain and difficulty ambulating. 1. ETOH abuse/intoxication/withdrawal. Continue CIWA protocol. Continue Ativan, continue to taper. Continue IV fluids. Continue thiamine, folic acid, multivitamin. Patient counseled at length on cessation. Continue to monitor for withdrawal symptoms. Continue supportive care. Continue fall precautions. 2. Hypothyroidism. Uncontrolled. Likely secondary to medication noncompliance. Patient again counseled on importance of compliance. Endocrinology following, recommendations appreciated. Continue levothyroxine 150mcg PO daily 3. Bilateral lower extremity edema, sunburn. Improving. Continue with calamine cream. Bilateral lower extremity venous dopplers negative for DVT. Continue with physical therapy. Continue fall precautions. 4. Elevated LFTS. Secondary to ETOH abuse. Improving. Abdominal ultrasound per radiologist shows liver exhibits increased echotexture likely due to fatty infiltration, however other infiltrative hepatic cellular disease process not excluded; trace ascites adjacent to gallbladder. Hepatitis panel negative 5. Pancytopenia. Improving. Likely secondary to ETOH abuse. Continue to monitor for now 6. Hypokalemia, hypomagnesemia. Resolved, Continue to monitor. 7. Conjuctivitis. Started on Tobrex. Continue to monitor. 8. Tobacco abuse. Counseled on cessation 9. Homelessness. food service utility worker following. Case was discussed in detail with the patient regarding current diagnosis and treatment plan.
[2017-11-17] MEDS: Tobramycin 0.3% OPH OINT OU SCH ×2 (18:08→21:24)
[2017-11-18] MEDS: Tobramycin 0.3% OPH OINT OU SCH ×4 (03:26→21:06)
[2017-11-18 06:30] LABS: BASO # 0.01 K/mm3 (0.0-2.0); BASO % 0.2 % (0.0-3.0); EOS % 0.7 % (1.5-5.0); GRAN # 2.61 (1.4-6.5); GRAN % 61.6 % (50.0-68.0); HEMOGLOBIN 9.4 g/dL (14.0-18.0); LYMPH % 23.8 % (22.0-35.0); MEAN CORPUSCULAR HEMOGLOBIN 36.7 pg (25.0-35.0); MEAN PLATELET VOLUME 10.9 fl (7.0-11.0); MONO # 0.6 (0.1-0.6); MONO % 13.7 % (1.0-6.0); RBC 2.56 10^6/uL (3.5-6.1); RED CELL DISTRIBUTION WIDTH 12.5 % (11.5-14.5); WHITE BLOOD COUNT 4.2 10^3/ul (4.5-11.0)
[2017-11-18 06:44] LABS: T4 1.4 ug/dL (5.5-11.0)
[2017-11-18 06:46] LABS: ALB/GLOB RATIO 1.4 (1.1-1.8); ALBUMIN 3.5 g/dL (3.0-4.8); ALT/SGPT 59 U/L (7-56); AST/SGOT 156 U/L (17-59); BLOOD UREA NITROGEN 11 mg/dL (7-21); GFR NON-AFRICAN AMERICAN > 60
[2017-11-18] MEDS: Multivitamin Therapeutic Tab PO SCH (07:56)
[2017-11-18] MEDS: Levothyroxine 150 MCG TAB PO SCH (07:56)
[2017-11-18] MEDS: Enoxaparin 40 mg Syringe SC SCH (09:36)
[2017-11-18] MEDS: Calamine-Zinc Oxide Lotion (120 ml) TOP SCH ×2 (09:38→17:42)
--- NOTE | 2017-11-18 14:45 | CP.PCM.PN ---
Subjective - Date & Time of Evaluation Date of Evaluation: 11/18/17 Time of Evaluation: 02:15 - Subjective Subjective: Endocrinology progress note: Patient seen and examined at bedside. No acute events overnight. Patient states that he feels well. No complaints. 12 point ROS was performed and negative other than stated above. Objective - Vital Signs/Intake and Output Vital Signs (last 24 hours): Temp Pulse Resp BP Pulse Ox 98 F 93 H 20 117/84 96 11/18/17 08:10 11/18/17 10:00 11/18/17 08:10 11/18/17 08:10 11/18/17 08:10 Intake and Output: 11/18/17 11/18/17 06:59 18:59 Intake Total 0 Balance 0 - Medications Medications: Current Medications Calamine (Calamine Lotion) 0 ml TOP BID [facility] Last Admin: 11/18/17 09:38 Dose: 120 ml Enoxaparin Sodium (Lovenox) 40 mg SC DAILY [facility] PRN Reason: Protocol Last Admin: 11/18/17 09:36 Dose: 40 mg Famotidine (Pepcid) 20 mg PO HS [facility] Last Admin: 11/17/17 21:24 Dose: 20 mg Folic Acid (Folic Acid) 1 mg PO DAILY [facility] Last Admin: 11/18/17 09:36 Dose: 1 mg Levothyroxine Sodium (Synthroid) 150 mcg PO ACB [facility] Last Admin: 11/18/17 07:56 Dose: 150 mcg Lorazepam (Ativan) 1 mg IVP Q4H PRN; Protocol PRN Reason: Symptoms of alcohol withdrawl Lorazepam (Ativan) 1 mg IVP Q12H [facility] PRN Reason: Protocol Last Admin: 11/18/17 11:44 Dose: 1 mg Multivitamins (Thera Tab) 1 tab PO 0800 [facility] Last Admin: 11/18/17 07:56 Dose: 1 tab Nicotine (Nicoderm Cq) 1 patch TD DAILY [facility] Last Admin: 11/18/17 09:36 Dose: 1 patch Thiamine HCl (Vitamin B1 Tab) 100 mg PO DAILY [facility] Last Admin: 11/18/17 09:37 Dose: 100 mg Tobramycin Sulfate (Tobrex 0.3% Ophth Oint) 0 appl OU Q6H [facility] Last Admin: 11/18/17 09:38 Dose: 1 applic - Labs Labs: 11/18/17 05:30 08/22/18 05:30 PT 11.4 SECONDS (9.4-12.5) 11/15/17 09:00 INR 0.99 11/15/17 09:00 APTT 31.2 Seconds (25.1-36.5) 11/15/17 09:00 - Constitutional Appears: No Acute Distress - Head Exam Head Exam: ATRAUMATIC, NORMOCEPHALIC - Eye Exam Eye Exam: EOMI - ENT Exam ENT Exam: Mucous Membranes Moist - Respiratory Exam Respiratory Exam: Clear to Ausculation Bilateral. absent: Wheezes - Cardiovascular Exam Cardiovascular Exam: Tachycardia, +S1, +S2 - GI/Abdominal Exam GI & Abdominal Exam: Soft. absent: Tenderness - Extremities Exam Extremities Exam: absent: Calf Tenderness, Pedal Edema - Neurological Exam Neurological Exam: Alert, Awake, Oriented x3 - Psychiatric Exam Psychiatric exam: Normal Mood - Skin Skin Exam: Dry, Warm Assessment and Plan - Assessment and Plan (Free Text) Assessment: 37-year-old male past medical history of hypothyroidism but was noncompliant and has not been taking his medications for the past 1 year, presents with moderate hypothyroidism. Continue with levothyroxine at 150 mcg daily Replete electrolytes as needed Serial CMPs Cont to monitor Case and plan was reviewed and discussed with Dr. Enamorado. Loco Davis, PGY 3
--- NOTE | 2017-11-18 16:29 | CP.PCM.PN ---
<Ezio Onofre - Last Filed: 11/18/17 16:22> Subjective - Date & Time of Evaluation Date of Evaluation: 11/18/17 Time of Evaluation: 16:22 - Subjective Subjective: Ezio Onofre D.O PGY-1, Internal Medicine progress note for Dr. Matos Patient was examined at bedside, no acute overnight events. Patient states that his legs are feeling better and swelling is better. Denies fevers, chills, chest pain, shortness of breath, abdominal pain, N/V/D. Objective - Vital Signs/Intake and Output Vital Signs (last 24 hours): Temp Pulse Resp BP Pulse Ox 98 F 93 H 20 117/84 96 11/18/17 08:10 11/18/17 10:00 11/18/17 08:10 11/18/17 08:10 11/18/17 08:10 Intake and Output: 11/18/17 11/18/17 06:59 18:59 Intake Total 0 Balance 0 - Medications Medications: Current Medications Calamine (Calamine Lotion) 0 ml TOP BID [facility] Last Admin: 11/18/17 09:38 Dose: 120 ml Enoxaparin Sodium (Lovenox) 40 mg SC DAILY [facility] PRN Reason: Protocol Last Admin: 11/18/17 09:36 Dose: 40 mg Famotidine (Pepcid) 20 mg PO HS [facility] Last Admin: 11/17/17 21:24 Dose: 20 mg Folic Acid (Folic Acid) 1 mg PO DAILY [facility] Last Admin: 11/18/17 09:36 Dose: 1 mg Levothyroxine Sodium (Synthroid) 150 mcg PO ACB [facility] Last Admin: 11/18/17 07:56 Dose: 150 mcg Lorazepam (Ativan) 1 mg IVP Q4H PRN; Protocol PRN Reason: Symptoms of alcohol withdrawl Lorazepam (Ativan) 1 mg IVP Q12H [facility] PRN Reason: Protocol Last Admin: 11/18/17 11:44 Dose: 1 mg Multivitamins (Thera Tab) 1 tab PO 0800 [facility] Last Admin: 11/18/17 07:56 Dose: 1 tab Nicotine (Nicoderm Cq) 1 patch TD DAILY [facility] Last Admin: 11/18/17 09:36 Dose: 1 patch Thiamine HCl (Vitamin B1 Tab) 100 mg PO DAILY [facility] Last Admin: 11/18/17 09:37 Dose: 100 mg Tobramycin Sulfate (Tobrex 0.3% Ophth Oint) 0 appl OU Q6H [facility] Last Admin: 11/18/17 09:38 Dose: 1 applic - Labs Labs: 11/18/17 05:30 11/18/17 05:30 PT 11.4 SECONDS (9.4-12.5) 11/15/17 09:00 INR 0.99 11/15/17 09:00 APTT 31.2 Seconds (25.1-36.5) 11/15/17 09:00 - Constitutional Appears: No Acute Distress - Head Exam Head Exam: ATRAUMATIC, NORMAL INSPECTION - Eye Exam Eye Exam: Normal appearance, PERRL - ENT Exam ENT Exam: Mucous Membranes Moist - Respiratory Exam Respiratory Exam: Clear to Ausculation Bilateral. absent: Rales, Rhonchi, Wheezes, Respiratory Distress - Cardiovascular Exam Cardiovascular Exam: REGULAR RHYTHM, +S1, +S2. absent: Gallop, Rubs, Murmur - GI/Abdominal Exam GI & Abdominal Exam: Soft, Normal Bowel Sounds. absent: Tenderness - Extremities Exam Additional comments: Bilateral lower extremities warm, erythematous, with sun-burnt appearance that is well demarcated from the line of the patients socks up to the knees. No pitting edema. Erythema has improved from yesterday - Neurological Exam Neurological Exam: Alert, Awake, Oriented x3 - Psychiatric Exam Psychiatric exam: Normal Affect, Normal Mood - Skin Skin Exam: Dry, Intact, Normal Color, Warm Assessment and Plan - Assessment and Plan (Free Text) Assessment: Mr. Castorena is a 37 year old male with a past medical history of chronic lower extremity venous stasis, hypothyroidism, alcohol abuse, and smoking who was admitted for bilateral lower extremity pain and alcohol withdrawal symptoms. Plan: Lower extremity Pain - Most likely secondary to chronic venous stasis with superimposed sun burn - Lower extremity Dopplers: No DVT - C/w Calamime cream to be applied BID to afffected areas Alcohol withdrawal symptoms - C/w Ativan 1 mg q4h PRN - C/w Ativan 1 mg q12h [facility] - CIWA protocol- last CIWA was 2 - Seizure and fall protocols - S/p Banana bag x 2 - C/w Multivitamin, Folic acid, and Thiamine - PT recommended patient with home services. However patient is homeless. PT will re-evaluate patient tomorrow. Hypothyroidism secondary to radioablation and non-compliance - TSH: 91.6 and Free T4: <0/07 - Endocrinology consulted, Dr. Enamorado - C/w Levothyroxine 150mg PO ACB Hypomagnesemia and hypokalemia, resolved - Monitor Magnesium and potassium levels - EKG (11/16): NSR at 69 bpm (preliminary report) - Patient monitored on telemetry Elevated LFTs - Most likely secondary to alcohol use - ALT/AST: 59/156- downtrending - Abdominal US: Liver fatty infiltration. Trace ascites adjacent to gall bladder - Hepatitis panel: negative - Monitor via serial CMPs Pancytopenia - Most likely secondary to myelosuppresive effect from chronic alcohol abuse - Will monitor with daily CBCs DVT/GI prophylaxis - Lovenox 40 mg SC Daily - Pepcid 20 mg HS Homelessness - Social work referral Case reviewed and discussed with attending physician, Dr. Matos <Nan Matos - Last Filed: 11/20/17 20:16> Objective - Vital Signs/Intake and Output Vital Signs (last 24 hours): Temp Pulse Resp BP Pulse Ox 99.0 F 60 19 106/76 97 11/20/17 16:15 11/20/17 16:15 11/20/17 16:15 11/20/17 16:15 11/20/17 16:15 Intake and Output: 11/20/17 11/21/17 18:59 06:59 Intake Total 1080 Output Total 1825 Balance -745 - Medications Medications: Current Medications Calamine (Calamine Lotion) 0 ml TOP BID [facility] Last Admin: 11/20/17 17:08 Dose: 120 ml Enoxaparin Sodium (Lovenox) 40 mg SC DAILY [facility] PRN Reason: Protocol Last Admin: 11/20/17 09:11 Dose: 40 mg Famotidine (Pepcid) 20 mg PO HS [facility] Last Admin: 11/19/17 21:42 Dose: 20 mg Folic Acid (Folic Acid) 1 mg PO DAILY [facility] Last Admin: 11/20/17 09:11 Dose: 1 mg Levothyroxine Sodium (Synthroid) 150 mcg PO ACB [facility] Last Admin: 11/20/17 08:18 Dose: 150 mcg Lorazepam (Ativan) 1 mg IVP Q6H PRN; Protocol PRN Reason: Symptoms of alcohol withdrawl Multivitamins (Thera Tab) 1 tab PO 0800 [facility] Last Admin: 11/20/17 08:18 Dose: 1 tab Nicotine (Nicoderm Cq) 1 patch TD DAILY [facility] Last Admin: 11/20/17 09:11 Dose: 1 patch Thiamine HCl (Vitamin B1 Tab) 100 mg PO DAILY [facility] Last Admin: 11/20/17 09:11 Dose: 100 mg Tobramycin Sulfate (Tobrex 0.3% Ophth Oint) 0 appl OU Q6H [facility] Last Admin: 11/20/17 14:45 Dose: 1 applic - Labs Labs: 11/20/17 05:45 11/20/17 05:30 PT 11.4 SECONDS (9.4-12.5) 11/15/17 09:00 INR 0.99 11/15/17 09:00 APTT 31.2 Seconds (25.1-36.5) 11/15/17 09:00 Attending/Attestation - Attestation I have personally seen and examined this patient.: Yes I have fully participated in the care of the patient.: Yes I have reviewed all pertinent clinical information, including history, physical exam and plan: Yes Notes (Text): Patient seen and examined by me at 10:20AM 11/18/17. Case including HPI, physical exam, and assessment and plan discussed with resident. Agree with above with following additions/corrections. Patient states he is feeling ok. Legs feel better. Pain has reduced with movement. He denies any chest pain or shortness of breath. No fevers or chills. No headaches or dizziness. No dysuria. No nausea, vomiting, or abdominal pain. Physical exam: Gen: Awake and alert sitting up in bed in no acute distress HEENT: Normocephalic, atraumatic. Extraocular muscles intact, pupils equal reactive. No scleral icterus. Positive discharge bilateral eyes. Oropharynx is pink and moist. Neck is supple. Cardiovascular: Normal rhythm. Normal S1, S2. No murmurs, rubs, or gallops appreciated Pulmonary: Normal respiratory effort. No rhonchi, rales or wheezing appreciated. Gastrointestinal: Soft, nontender, nondistended, positive bowel sounds all 4 quadrants, no guarding. Musculoskeletal: Moves all extremities. Bilateral lower extremity edema. Central nervous system: Alert and awake. Periods of confusion. CN 2-12 grossly intact, positive tremors bilateral upper extremities. Dermatologic: Skin warm and dry, bilateral lower extremity chronic venous stasis color changes with superimposed improving sun burn, also noticed on face and neck. Assessment and plan: Patient is a 37 year old male with past medical history significant alcohol abuse, tobacco abuse, hypothyroidism, and lower extremity venous stasis that presented to the emergency room with lower extremity pain and difficulty ambulating. 1. ETOH abuse/intoxication/withdrawal. Still scoring on CIWA. Continue CIWA protocol. Continue Ativan, continue to taper. Continue IV fluids. Continue thiamine, folic acid, multivitamin. Patient counseled at length on cessation. Continue to monitor for withdrawal symptoms. Continue supportive care. Continue fall precautions. 2. Hypothyroidism. Uncontrolled. Likely secondary to medication noncompliance. Continue levothyroxine 150mcg PO daily. Endocrinology following, recommendations appreciated. Counseled again on importance of medication compliance. 3. Bilateral lower extremity edema, sunburn. Continues to improve. Continue with calamine cream. Bilateral lower extremity venous dopplers negative for DVT. Continue with physical therapy. Continue fall precautions. 4. Elevated LFTS. Secondary to ETOH abuse. Continues to improve. Abdominal ultrasound per radiologist shows liver exhibits increased echotexture likely due to fatty infiltration, however other infiltrative hepatic cellular disease process not excluded; trace ascites adjacent to gallbladder. Hepatitis panel negative 5. Pancytopenia. Thrombocytopenia resolved. Likely secondary to ETOH abuse. Continue to monitor for now 6. Hypokalemia, hypomagnesemia. Resolved, Continue to monitor. 7. Conjuctivitis. Continue Tobrex. Continue to monitor. 8. Tobacco abuse. Counseled on cessation 9. Homelessness. pass worker following. 10. Gait instability. Follow up with PT for further recommendations. Case was discussed in detail with the patient regarding current diagnosis and treatment plan.
[2017-11-18 18:04] LABS: TSI 156 % baseline (<140)
[2017-11-19] MEDS: Tobramycin 0.3% OPH OINT OU SCH ×4 (03:21→21:43)
[2017-11-19 06:45] LABS: BASO # 0.01 K/mm3 (0.0-2.0); BASO % 0.2 % (0.0-3.0); EOS % 0.7 % (1.5-5.0); GRAN # 2.59 (1.4-6.5); HEMOGLOBIN 8.9 g/dL (14.0-18.0); LYMPH # 1.1 (1.2-3.4); LYMPH % 25.5 % (22.0-35.0); MEAN CELL VOLUME 102.9 fl (80.0-105.0); MEAN CORPUSCULAR HEMOGLOBIN 36.6 pg (25.0-35.0); MEAN CORPUSCULAR HGB CONC 35.6 g/dl (31.0-37.0); MEAN PLATELET VOLUME 10.2 fl (7.0-11.0); MONO # 0.6 (0.1-0.6); MONO % 14.6 % (1.0-6.0); RBC 2.43 10^6/uL (3.5-6.1); RED CELL DISTRIBUTION WIDTH 12.8 % (11.5-14.5); WHITE BLOOD COUNT 4.4 10^3/ul (4.5-11.0)
[2017-11-19 07:20] LABS: ALB/GLOB RATIO 1.3 (1.1-1.8); ALBUMIN 3.4 g/dL (3.0-4.8); ALT/SGPT 50 U/L (7-56); AST/SGOT 114 U/L (17-59); BLOOD UREA NITROGEN 12 mg/dL (7-21); CALCIUM 8.5 mg/dL (8.4-10.5); GFR NON-AFRICAN AMERICAN > 60
[2017-11-19 08:21] LABS: CK-MB 4.2 ng/mL (0.0-3.6)
--- NOTE | 2017-11-19 08:23 | PN ---
Copied To: Marivel Enamorado MD Attending MD: Marivel Enamorado MD DATE: 11/18/2017 ENDOCRINOLOGY FOLLOWUP NOTE LOCATION: In room 372. SUBJECTIVE: This is a 37-year-old male with recent overt hypothyroidism, currently tolerating the modified dosing regimen as given. His latest thyroid study showed a T4 of 1.4 with a TSH of 71.9. So at this time, we will continue the modified dosing of the levothyroxine given at 150 mcg once daily in the morning as ordered. We will also obtain the thyroid antibodies which will confirm and/or indicate the presence of underlying thyroid autoimmunity. It has been reinforced with the patient regarding the need for outpatient followup and lab testing as indicated. The levothyroxine medications are extremely cheap and affordable and actually cost only $10 for three months supply at [facility] or [facility]. So there is no excuse at this point in time for the patient to be off medications or for any reasons of drug omission. His unhealthy habits of cocaine, alcohol, and cigarette usage cost a lot more than the expense for his medical therapy. Marivel Enamorado MD
[2017-11-19] MEDS: Levothyroxine 150 MCG TAB PO SCH (08:31)
[2017-11-19] MEDS: Multivitamin Therapeutic Tab PO SCH (08:31)
--- NOTE | 2017-11-19 08:55 | CP.PCM.PN ---
Subjective - Date & Time of Evaluation Date of Evaluation: 11/19/17 Time of Evaluation: 07:15 - Subjective Subjective: Endocrinology progress note: Patient seen and examined at bedside. No acute events overnight. Patient states that his legs have less swelling and redness. No other complaints. 12 point ROS was performed and negative other than stated above. Objective - Vital Signs/Intake and Output Vital Signs (last 24 hours): Temp Pulse Resp BP Pulse Ox 98.1 F 65 18 116/83 95 11/19/17 08:15 11/19/17 08:15 11/19/17 08:15 11/19/17 08:15 11/19/17 08:15 Intake and Output: 11/19/17 11/19/17 06:59 18:59 Intake Total 480 Balance 480 - Medications Medications: Current Medications Calamine (Calamine Lotion) 0 ml TOP BID [facility] Last Admin: 11/18/17 17:42 Dose: 120 ml Enoxaparin Sodium (Lovenox) 40 mg SC DAILY [facility] PRN Reason: Protocol Last Admin: 11/18/17 09:36 Dose: 40 mg Famotidine (Pepcid) 20 mg PO HS [facility] Last Admin: 11/18/17 21:06 Dose: 20 mg Folic Acid (Folic Acid) 1 mg PO DAILY [facility] Last Admin: 11/18/17 09:36 Dose: 1 mg Levothyroxine Sodium (Synthroid) 150 mcg PO ACB [facility] Last Admin: 11/19/17 08:31 Dose: 150 mcg Lorazepam (Ativan) 1 mg IVP Q4H PRN; Protocol PRN Reason: Symptoms of alcohol withdrawl Lorazepam (Ativan) 1 mg IVP Q12H [facility] PRN Reason: Protocol Last Admin: 11/19/17 00:35 Dose: 1 mg Multivitamins (Thera Tab) 1 tab PO 0800 [facility] Last Admin: 11/19/17 08:31 Dose: 1 tab Nicotine (Nicoderm Cq) 1 patch TD DAILY [facility] Last Admin: 11/18/17 09:36 Dose: 1 patch Thiamine HCl (Vitamin B1 Tab) 100 mg PO DAILY [facility] Last Admin: 11/18/17 09:37 Dose: 100 mg Tobramycin Sulfate (Tobrex 0.3% Ophth Oint) 0 appl OU Q6H [facility] Last Admin: 11/19/17 03:21 Dose: Not Given - Labs Labs: 11/19/17 05:30 11/19/17 05:30 PT 11.4 SECONDS (9.4-12.5) 11/15/17 09:00 INR 0.99 11/15/17 09:00 APTT 31.2 Seconds (25.1-36.5) 11/15/17 09:00 - Constitutional Appears: No Acute Distress - Head Exam Head Exam: ATRAUMATIC, NORMOCEPHALIC - Eye Exam Eye Exam: EOMI - ENT Exam ENT Exam: Mucous Membranes Moist - Respiratory Exam Respiratory Exam: Clear to Ausculation Bilateral - Cardiovascular Exam Cardiovascular Exam: REGULAR RHYTHM, +S1, +S2 - GI/Abdominal Exam GI & Abdominal Exam: Soft - Neurological Exam Neurological Exam: Alert, Awake, Oriented x3 - Psychiatric Exam Psychiatric exam: Normal Mood - Skin Skin Exam: Dry, Warm Assessment and Plan - Assessment and Plan (Free Text) Assessment: 37-year-old male past medical history of hypothyroidism but was noncompliant and has not been taking his medications for the past 1 year, presents with moderate hypothyroidism. Currently doing well; we will continue levothyroxine at 150 mcg daily Replete electrolytes as needed Serial CMPs Case and plan was reviewed and discussed with Dr. Enamorado. Loco Davis, PGY 3
[2017-11-19] MEDS: Enoxaparin 40 mg Syringe SC SCH (09:45)
[2017-11-19] MEDS: Calamine-Zinc Oxide Lotion (120 ml) TOP SCH ×2 (09:46→17:09)
--- NOTE | 2017-11-19 13:19 | CP.PCM.PN ---
<Ezio Onofre - Last Filed: 11/19/17 13:28> Subjective - Date & Time of Evaluation Date of Evaluation: 11/19/17 Time of Evaluation: 13:13 - Subjective Subjective: Ezio Onofre D.O PGY-1, Internal Medicine progress note for Dr. Ponce Patient was examined at bedside, no acute overnight events. Patient states he only has pain in his legs when he is ambulating. Denies fevers, chills, chest pain, shortness of breath, abdominal pain, N/V/D. Objective - Vital Signs/Intake and Output Vital Signs (last 24 hours): Temp Pulse Resp BP Pulse Ox 98.1 F 78 18 116/83 95 11/19/17 08:15 11/19/17 10:00 11/19/17 08:15 11/19/17 08:15 11/19/17 08:15 Intake and Output: 11/19/17 11/19/17 06:59 18:59 Intake Total 480 Balance 480 - Medications Medications: Current Medications Calamine (Calamine Lotion) 0 ml TOP BID [facility] Last Admin: 11/19/17 09:46 Dose: 120 ml Enoxaparin Sodium (Lovenox) 40 mg SC DAILY [facility] PRN Reason: Protocol Last Admin: 11/19/17 09:45 Dose: 40 mg Famotidine (Pepcid) 20 mg PO HS [facility] Last Admin: 11/18/17 21:06 Dose: 20 mg Folic Acid (Folic Acid) 1 mg PO DAILY [facility] Last Admin: 11/19/17 09:45 Dose: 1 mg Levothyroxine Sodium (Synthroid) 150 mcg PO ACB [facility] Last Admin: 11/19/17 08:31 Dose: 150 mcg Lorazepam (Ativan) 1 mg IVP Q4H PRN; Protocol PRN Reason: Symptoms of alcohol withdrawl Lorazepam (Ativan) 1 mg IVP Q12H [facility] PRN Reason: Protocol Last Admin: 11/19/17 11:52 Dose: 1 mg Multivitamins (Thera Tab) 1 tab PO 0800 [facility] Last Admin: 11/19/17 08:31 Dose: 1 tab Nicotine (Nicoderm Cq) 1 patch TD DAILY [facility] Last Admin: 11/19/17 09:45 Dose: 1 patch Thiamine HCl (Vitamin B1 Tab) 100 mg PO DAILY [facility] Last Admin: 11/19/17 09:45 Dose: 100 mg Tobramycin Sulfate (Tobrex 0.3% Ophth Oint) 0 appl OU Q6H [facility] Last Admin: 11/19/17 09:47 Dose: 1 applic - Labs Labs: 11/19/17 05:30 11/19/17 05:30 PT 11.4 SECONDS (9.4-12.5) 11/15/17 09:00 INR 0.99 11/15/17 09:00 APTT 31.2 Seconds (25.1-36.5) 11/15/17 09:00 - Additional Findings Additional findings: - Constitutional Appears: No Acute Distress - Head Exam Head Exam: ATRAUMATIC, NORMAL INSPECTION - Eye Exam Eye Exam: Normal appearance, PERRL - ENT Exam ENT Exam: Mucous Membranes Moist - Respiratory Exam Respiratory Exam: Clear to Ausculation Bilateral. absent: Rales, Rhonchi, Wheezes, Respiratory Distress - Cardiovascular Exam Cardiovascular Exam: REGULAR RHYTHM, +S1, +S2. absent: Gallop, Rubs, Murmur - GI/Abdominal Exam GI & Abdominal Exam: Soft, Normal Bowel Sounds. absent: Tenderness - Extremities Exam Additional comments: Bilateral lower extremities warm, erythematous, with sun-burnt appearance that is well demarcated from the line of the patients socks up to the knees. No pitting edema. Erythema has improved from yesterday - Neurological Exam Neurological Exam: Alert, Awake, Oriented x3 - Psychiatric Exam Psychiatric exam: Normal Affect, Normal Mood - Skin Skin Exam: Dry, Intact, Normal Color, Warm Assessment and Plan - Assessment and Plan (Free Text) Assessment: Mr. Castorena is a 37 year old male with a past medical history of chronic lower extremity venous stasis, hypothyroidism, alcohol abuse, and smoking who was admitted for bilateral lower extremity pain and alcohol withdrawal symptoms. Plan: Lower extremity Pain, improving - Most likely secondary to chronic venous stasis with superimposed sun burn - Lower extremity Dopplers: No DVT - C/w Calamime cream to be applied BID to afffected areas Alcohol withdrawal symptoms - C/w Ativan 1 mg q6h PRN - C/w Ativan 0.5 mg q12h [facility] - CIWA protocol- last CIWA was 2 - Seizure and fall protocol - C/w Multivitamin, Folic acid, and Thiamine - PT recommended patient with home services. Patient is not ready for discharge at this time since he still requires 1-person assist when he ambulates Hypothyroidism secondary to radioablation and non-compliance - TSH: 71.9 and Free T4: <0.07 - Endocrinology consulted, Dr. Enamorado - C/w Levothyroxine 150mg PO ACB Sacral decubitus ulcer stage 2 - Continue local wound care - Cover with optifoam Elevated LFTs - Most likely secondary to alcohol use - ALT/AST: 50/114- downtrending - Abdominal US: Liver fatty infiltration. Trace ascites adjacent to gall bladder - Hepatitis panel: negative - Monitor via serial CMPs Hypomagnesemia and hypokalemia, resolved - Monitor Magnesium and potassium levels - EKG (11/16): NSR at 69 bpm - Patient monitored on telemetry Pancytopenia - Most likely secondary to myelosuppresive effect from chronic alcohol abuse - Will monitor with daily CBCs DVT/GI prophylaxis - Lovenox 40 mg SC Daily - Pepcid 20 mg HS Homelessness - Social work referral - Patient was given resources for homelessness in [facility] and highlighted pertinent information. Case reviewed and discussed with attending physician, Dr. Ponce <Kaya Ponce - Last Filed: 11/20/17 07:17> Objective - Vital Signs/Intake and Output Vital Signs (last 24 hours): Temp Pulse Resp BP Pulse Ox 97.8 F 66 20 95/67 L 94 L 11/20/17 06:00 11/20/17 06:00 11/20/17 06:00 11/20/17 06:00 11/20/17 06:00 Intake and Output: 11/20/17 11/20/17 06:59 18:59 Intake Total 240 Output Total 1700 Balance -1460 - Medications Medications: Current Medications Calamine (Calamine Lotion) 0 ml TOP BID [facility] Last Admin: 11/19/17 17:09 Dose: 120 ml Enoxaparin Sodium (Lovenox) 40 mg SC DAILY [facility] PRN Reason: Protocol Last Admin: 11/19/17 09:45 Dose: 40 mg Famotidine (Pepcid) 20 mg PO HS [facility] Last Admin: 11/19/17 21:42 Dose: 20 mg Folic Acid (Folic Acid) 1 mg PO DAILY [facility] Last Admin: 11/19/17 09:45 Dose: 1 mg Levothyroxine Sodium (Synthroid) 150 mcg PO ACB [facility] Last Admin: 11/19/17 08:31 Dose: 150 mcg Lorazepam (Ativan) 0.5 mg IVP Q12H [facility] PRN Reason: Protocol Last Admin: 11/20/17 01:41 Dose: 0.5 mg Lorazepam (Ativan) 1 mg IVP Q6H PRN; Protocol PRN Reason: Symptoms of alcohol withdrawl Multivitamins (Thera Tab) 1 tab PO 0800 [facility] Last Admin: 11/19/17 08:31 Dose: 1 tab Nicotine (Nicoderm Cq) 1 patch TD DAILY [facility] Last Admin: 11/19/17 09:45 Dose: 1 patch Thiamine HCl (Vitamin B1 Tab) 100 mg PO DAILY [facility] Last Admin: 11/19/17 09:45 Dose: 100 mg Tobramycin Sulfate (Tobrex 0.3% Ophth Oint) 0 appl OU Q6H [facility] Last Admin: 11/20/17 05:20 Dose: Not Given - Labs Labs: 11/19/17 05:30 11/20/17 05:30 PT 11.4 SECONDS (9.4-12.5) 11/15/17 09:00 INR 0.99 11/15/17 09:00 APTT 31.2 Seconds (25.1-36.5) 11/15/17 09:00 Attending/Attestation - Attestation I have personally seen and examined this patient.: Yes I have fully participated in the care of the patient.: Yes I have reviewed all pertinent clinical information, including history, physical exam and plan: Yes Notes (Text): 11/19/17 37 year old male with past medical history of hypothyroidism, chronic alcohol abuse and homelessness who presented with lower leg swelling and alcohol intoxication. He is on tapering ativan danielito/prn for withdrawal symptoms. He was counselled on alcohol cessation. He has chronic venous stasis with superimposed sun burn in lower legs and also face / neck line which is improving with calamine cream. Pancytopenia is stable. LFTs have improved. He is on synthroid for hypothyroidism. Endocrinology is following. Patient is overall improving, however still weak with unsteady gait. D/c planning once cleared by PT. Kaya Ponce MD Hospitalist.
[2017-11-20] MEDS: Tobramycin 0.3% OPH OINT OU SCH ×4 (05:20→21:31)
[2017-11-20 06:34] LABS: ALB/GLOB RATIO 1.3 (1.1-1.8); ALBUMIN 3.4 g/dL (3.0-4.8); ALT/SGPT 44 U/L (7-56); AST/SGOT 102 U/L (17-59); BLOOD UREA NITROGEN 13 mg/dL (7-21); CALCIUM 8.7 mg/dL (8.4-10.5); GFR NON-AFRICAN AMERICAN > 60
[2017-11-20 06:48] LABS: BASO # 0.01 K/mm3 (0.0-2.0); BASO % 0.2 % (0.0-3.0); EOS % 0.5 % (1.5-5.0); GRAN # 2.3 (1.4-6.5); GRAN % 52.6 % (50.0-68.0); HEMOGLOBIN 8.2 g/dL (14.0-18.0); LYMPH # 1.3 (1.2-3.4); LYMPH % 28.6 % (22.0-35.0); MEAN CELL VOLUME 102.7 fl (80.0-105.0); MEAN CORPUSCULAR HEMOGLOBIN 36.3 pg (25.0-35.0); MEAN CORPUSCULAR HGB CONC 35.3 g/dl (31.0-37.0); MEAN PLATELET VOLUME 10.3 fl (7.0-11.0); MONO # 0.8 (0.1-0.6); MONO % 18.1 % (1.0-6.0); RBC 2.26 10^6/uL (3.5-6.1); RED CELL DISTRIBUTION WIDTH 13.1 % (11.5-14.5); WHITE BLOOD COUNT 4.4 10^3/ul (4.5-11.0)
[2017-11-20] MEDS: Levothyroxine 150 MCG TAB PO SCH (08:18)
[2017-11-20] MEDS: Multivitamin Therapeutic Tab PO SCH (08:18)
[2017-11-20] MEDS: Enoxaparin 40 mg Syringe SC SCH (09:11)
[2017-11-20] MEDS: Calamine-Zinc Oxide Lotion (120 ml) TOP SCH ×2 (09:12→17:08)
--- NOTE | 2017-11-20 14:11 | CP.PCM.PN ---
<Ezio Onofre - Last Filed: 11/20/17 14:15> Subjective - Date & Time of Evaluation Date of Evaluation: 11/20/17 Time of Evaluation: 14:06 - Subjective Subjective: Ezio Onofre D.O PGY-1, Internal Medicine progress note for Dr. Ponce Patient was examined at bedside, no acute overnight events. Patient still feels unsteady and dizzy when he ambulates, he states that he is afraid that he will fall if he climb up or down the stairs. Denies fevers, chills, chest pain, shortness of breath, abdominal pain, N/V/D. Objective - Vital Signs/Intake and Output Vital Signs (last 24 hours): Temp Pulse Resp BP Pulse Ox 97.8 F 66 20 95/67 L 94 L 11/20/17 06:00 11/20/17 06:00 11/20/17 06:00 11/20/17 06:00 11/20/17 06:00 Intake and Output: 11/20/17 11/20/17 06:59 18:59 Intake Total 240 240 Output Total 1700 300 Balance -1460 -60 - Medications Medications: Current Medications Calamine (Calamine Lotion) 0 ml TOP BID [facility] Last Admin: 11/20/17 09:12 Dose: 120 ml Enoxaparin Sodium (Lovenox) 40 mg SC DAILY [facility] PRN Reason: Protocol Last Admin: 11/20/17 09:11 Dose: 40 mg Famotidine (Pepcid) 20 mg PO HS [facility] Last Admin: 11/19/17 21:42 Dose: 20 mg Folic Acid (Folic Acid) 1 mg PO DAILY [facility] Last Admin: 11/20/17 09:11 Dose: 1 mg Levothyroxine Sodium (Synthroid) 150 mcg PO ACB [facility] Last Admin: 11/20/17 08:18 Dose: 150 mcg Lorazepam (Ativan) 0.5 mg IVP Q12H [facility] PRN Reason: Protocol Last Admin: 11/20/17 01:41 Dose: 0.5 mg Lorazepam (Ativan) 1 mg IVP Q6H PRN; Protocol PRN Reason: Symptoms of alcohol withdrawl Multivitamins (Thera Tab) 1 tab PO 0800 [facility] Last Admin: 11/20/17 08:18 Dose: 1 tab Nicotine (Nicoderm Cq) 1 patch TD DAILY [facility] Last Admin: 11/20/17 09:11 Dose: 1 patch Thiamine HCl (Vitamin B1 Tab) 100 mg PO DAILY [facility] Last Admin: 11/20/17 09:11 Dose: 100 mg Tobramycin Sulfate (Tobrex 0.3% Ophth Oint) 0 appl OU Q6H [facility] Last Admin: 11/20/17 09:13 Dose: 1 applic - Labs Labs: 11/20/17 05:45 11/20/17 05:30 PT 11.4 SECONDS (9.4-12.5) 11/15/17 09:00 INR 0.99 11/15/17 09:00 APTT 31.2 Seconds (25.1-36.5) 11/15/17 09:00 - Additional Findings Additional findings: - Constitutional Appears: No Acute Distress - Head Exam Head Exam: ATRAUMATIC, NORMAL INSPECTION - Eye Exam Eye Exam: Normal appearance, PERRL - ENT Exam ENT Exam: Mucous Membranes Moist - Respiratory Exam Respiratory Exam: Clear to Ausculation Bilateral. absent: Rales, Rhonchi, Wheezes, Respiratory Distress - Cardiovascular Exam Cardiovascular Exam: REGULAR RHYTHM, +S1, +S2. absent: Gallop, Rubs, Murmur - GI/Abdominal Exam GI & Abdominal Exam: Soft, Normal Bowel Sounds. absent: Tenderness - Extremities Exam Additional comments: Bilateral lower extremities warm, erythematous, with sun-burnt appearance that is well demarcated from the line of the patients socks up to the knees. No pitting edema. Erythema has improved - Neurological Exam Neurological Exam: Alert, Awake, Oriented x3 - Psychiatric Exam Psychiatric exam: Normal Affect, Normal Mood - Skin Skin Exam: Dry, Intact, Normal Color, Warm Assessment and Plan - Assessment and Plan (Free Text) Assessment: Mr. Castorena is a 37 year old male with a past medical history of chronic lower extremity venous stasis, hypothyroidism, alcohol abuse, and smoking who was admitted for bilateral lower extremity pain and alcohol withdrawal symptoms. Plan: Lower extremity Pain, improving - Most likely secondary to chronic venous stasis with superimposed sun burn - Lower extremity Dopplers: No DVT - C/w Calamime cream to be applied BID to affected areas Alcohol withdrawal symptoms - C/w Ativan 1 mg q6h PRN - CIWA protocol- last CIWA was 2 - Seizure and fall protocol - C/w Multivitamin, Folic acid, and Thiamine - Patient encouraged to ambulate to the chair and bathroom more often with nurse 's help - PT evaluated patient and gave patient a cane to use. Patient is still unsteady and still needs assistance when ambulating Hypothyroidism secondary to radioablation and non-compliance - TSH: 71.9 and Free T4: <0.07 - Endocrinology consulted, Dr. Enamorado - C/w Levothyroxine 150mg PO ACB Sacral decubitus ulcer stage 2 - Continue local wound care - Cover with optifoam Elevated LFTs - Most likely secondary to alcohol use - ALT/AST: 44/102- downtrending - Abdominal US: Liver fatty infiltration. Trace ascites adjacent to gall bladder - Hepatitis panel: negative - Monitor via serial CMPs Hypomagnesemia and hypokalemia, resolved - Monitor Magnesium and potassium levels - EKG (11/16): NSR at 69 bpm Pancytopenia - Most likely secondary to myelosuppresive effect from chronic alcohol abuse - Will monitor with daily CBCs DVT/GI prophylaxis - Lovenox 40 mg SC Daily - Pepcid 20 mg HS Homelessness - Social work referral - Patient states he will go and live at his friend's house once discharged - Patient was given resources for homelessness in [facility] and highlighted pertinent information Case reviewed and discussed with attending physician, Dr. Ponce <Kaya Ponce - Last Filed: 11/20/17 15:24> Objective - Vital Signs/Intake and Output Vital Signs (last 24 hours): Temp Pulse Resp BP Pulse Ox 97.8 F 66 20 95/67 L 94 L 11/20/17 06:00 11/20/17 06:00 11/20/17 06:00 11/20/17 06:00 11/20/17 06:00 Intake and Output: 11/20/17 11/20/17 06:59 18:59 Intake Total 240 240 Output Total 1700 300 Balance -1460 -60 - Medications Medications: Current Medications Calamine (Calamine Lotion) 0 ml TOP BID [facility] Last Admin: 11/20/17 09:12 Dose: 120 ml Enoxaparin Sodium (Lovenox) 40 mg SC DAILY [facility] PRN Reason: Protocol Last Admin: 11/20/17 09:11 Dose: 40 mg Famotidine (Pepcid) 20 mg PO HS [facility] Last Admin: 11/19/17 21:42 Dose: 20 mg Folic Acid (Folic Acid) 1 mg PO DAILY [facility] Last Admin: 11/20/17 09:11 Dose: 1 mg Levothyroxine Sodium (Synthroid) 150 mcg PO ACB [facility] Last Admin: 11/20/17 08:18 Dose: 150 mcg Lorazepam (Ativan) 1 mg IVP Q6H PRN; Protocol PRN Reason: Symptoms of alcohol withdrawl Multivitamins (Thera Tab) 1 tab PO 0800 [facility] Last Admin: 11/20/17 08:18 Dose: 1 tab Nicotine (Nicoderm Cq) 1 patch TD DAILY [facility] Last Admin: 11/20/17 09:11 Dose: 1 patch Thiamine HCl (Vitamin B1 Tab) 100 mg PO DAILY [facility] Last Admin: 11/20/17 09:11 Dose: 100 mg Tobramycin Sulfate (Tobrex 0.3% Ophth Oint) 0 appl OU Q6H [facility] Last Admin: 11/20/17 14:45 Dose: 1 applic - Labs Labs: 11/20/17 05:45 11/20/17 05:30 PT 11.4 SECONDS (9.4-12.5) 11/15/17 09:00 INR 0.99 11/15/17 09:00 APTT 31.2 Seconds (25.1-36.5) 11/15/17 09:00 Attending/Attestation - Attestation I have personally seen and examined this patient.: Yes I have fully participated in the care of the patient.: Yes I have reviewed all pertinent clinical information, including history, physical exam and plan: Yes Notes (Text): 11/20/17 15:21 37 year old male with past medical history of hypothyroidism, chronic alcohol abuse and homelessness who presented with lower leg swelling and alcohol intoxication. He is on tapering ativan danielito/prn for withdrawal symptoms which have improved. He was counselled on alcohol abstinence. He has chronic venous stasis with superimposed sun burn in lower legs which improved with calamine cream. Pancytopenia is stable. LFTs have improved. He is on synthroid for hypothyroidism. Endocrinology is following. Patient's weakness and unsteady gait is slowly improving. Continue with physical therapy. D/c planning once cleared by PT. Kaya Ponce MD Hospitalist.
[2017-11-21] MEDS: Tobramycin 0.3% OPH OINT OU SCH ×4 (04:09→21:32)
[2017-11-21 07:21] LABS: BASO # 0.01 K/mm3 (0.0-2.0); BASO % 0.2 % (0.0-3.0); EOS % 0.2 % (1.5-5.0); GRAN # 2.49 (1.4-6.5); GRAN % 57.4 % (50.0-68.0); HEMOGLOBIN 8.6 g/dL (14.0-18.0); LYMPH # 1.3 (1.2-3.4); LYMPH % 30.2 % (22.0-35.0); MEAN CELL VOLUME 103.8 fl (80.0-105.0); MEAN CORPUSCULAR HGB CONC 34.7 g/dl (31.0-37.0); MEAN PLATELET VOLUME 9.6 fl (7.0-11.0); MONO # 0.5 (0.1-0.6); RBC 2.39 10^6/uL (3.5-6.1); RED CELL DISTRIBUTION WIDTH 13.1 % (11.5-14.5); WHITE BLOOD COUNT 4.3 10^3/ul (4.5-11.0)
[2017-11-21 07:41] LABS: ALB/GLOB RATIO 1.5 (1.1-1.8); ALBUMIN 4.3 g/dL (3.0-4.8); ALT/SGPT 47 U/L (7-56); AST/SGOT 106 U/L (17-59); BLOOD UREA NITROGEN 15 mg/dL (7-21); CALCIUM 9.6 mg/dL (8.4-10.5); GFR NON-AFRICAN AMERICAN > 60
[2017-11-21 07:52] VITALS: RESP 20
[2017-11-21] MEDS: Enoxaparin 40 mg Syringe SC SCH (09:11)
[2017-11-21] MEDS: Levothyroxine 150 MCG TAB PO SCH (09:12)
[2017-11-21] MEDS: Multivitamin Therapeutic Tab PO SCH (09:12)
[2017-11-21] MEDS: Calamine-Zinc Oxide Lotion (120 ml) TOP SCH ×2 (09:15→17:45)
--- NOTE | 2017-11-21 15:56 | CP.PCM.PN ---
<Dorian Matos - Last Filed: 11/21/17 15:52> Subjective - Date & Time of Evaluation Date of Evaluation: 11/21/17 Time of Evaluation: 15:52 - Subjective Subjective: Dorian Matos DO PGY1 - Internal Medicine Hip Hop Artist - Hospital Progress Note Seen and examined at bedsdie this AM. NO complaints reported by nursing overnight. Patient has not required ativan in 24 hours and has not complained of tremors, however, he does report some unsteadiness w/ his gait at this time. He worked with PT services yesterday and was voicing similar complaints. Remainder of 12 system ROS is otherwise negative. Objective - Vital Signs/Intake and Output Vital Signs (last 24 hours): Temp Pulse Resp BP Pulse Ox 98.9 F 62 20 110/76 96 11/21/17 07:52 11/21/17 07:52 11/21/17 07:52 11/21/17 07:52 11/21/17 07:52 Intake and Output: 11/21/17 11/21/17 06:59 18:59 Intake Total 480 Output Total 2600 Balance -2120 - Medications Medications: Current Medications Calamine (Calamine Lotion) 0 ml TOP BID [facility] Last Admin: 11/21/17 09:15 Dose: 120 ml Enoxaparin Sodium (Lovenox) 40 mg SC DAILY [facility] PRN Reason: Protocol Last Admin: 11/21/17 09:11 Dose: 40 mg Famotidine (Pepcid) 20 mg PO HS [facility] Last Admin: 11/20/17 21:30 Dose: 20 mg Folic Acid (Folic Acid) 1 mg PO DAILY [facility] Last Admin: 11/21/17 09:12 Dose: 1 mg Levothyroxine Sodium (Synthroid) 150 mcg PO ACB [facility] Last Admin: 11/21/17 09:12 Dose: 150 mcg Lorazepam (Ativan) 1 mg IVP Q6H PRN; Protocol PRN Reason: Symptoms of alcohol withdrawl Multivitamins (Thera Tab) 1 tab PO 0800 [facility] Last Admin: 11/21/17 09:12 Dose: 1 tab Nicotine (Nicoderm Cq) 1 patch TD DAILY [facility] Last Admin: 11/21/17 09:12 Dose: 1 patch Thiamine HCl (Vitamin B1 Tab) 100 mg PO DAILY [facility] Last Admin: 11/21/17 09:13 Dose: 100 mg Tobramycin Sulfate (Tobrex 0.3% Ophth Oint) 0 appl OU Q6H [facility] Last Admin: 11/21/17 09:16 Dose: 1 applic - Labs Labs: 11/21/17 07:00 11/21/17 07:00 PT 11.4 SECONDS (9.4-12.5) 11/15/17 09:00 INR 0.99 11/15/17 09:00 APTT 31.2 Seconds (25.1-36.5) 11/15/17 09:00 Physical Exam - Constitutional Appears: No Acute Distress - Head Exam Head Exam: ATRAUMATIC, NORMAL INSPECTION - Eye Exam Eye Exam: Normal appearance, PERRL - ENT Exam ENT Exam: Mucous Membranes Moist - Respiratory Exam Respiratory Exam: Clear to Ausculation Bilateral. absent: Rales, Rhonchi, Wheezes, Respiratory Distress - Cardiovascular Exam Cardiovascular Exam: REGULAR RHYTHM, +S1, +S2. absent: Gallop, Rubs, Murmur - GI/Abdominal Exam GI & Abdominal Exam: Soft, Normal Bowel Sounds. absent: Tenderness - Extremities Exam Additional comments: Bilateral lower extremities warm, erythematous, Sun-Burnt erythema much improved still red however no flaking. - Neurological Exam Neurological Exam: Alert, Awake, Oriented x3 - Psychiatric Exam Psychiatric exam: Normal Affect, Normal Mood - Skin Skin Exam: Dry, Intact, Normal Color, Warm Assessment and Plan - Assessment and Plan (Free Text) Assessment: Mr. Castorena is a 37 year old male with a past medical history of chronic lower extremity venous stasis, hypothyroidism, alcohol abuse, and smoking who was admitted for bilateral lower extremity pain and alcohol withdrawal symptoms. Plan: Lower extremity Pain, improving - Most likely secondary to chronic venous stasis with superimposed sun burn - Lower extremity Dopplers: No DVT - C/w Calamime cream to be applied BID to affected areas Alcohol withdrawal symptoms - No ativan needed in 24H; Ativan DC'd - Seizure and fall protocol - C/w Multivitamin, Folic acid, and Thiamine - Patient encouraged to ambulate to the chair and bathroom more often with nurse 's help - PT evaluated patient and gave patient a cane to use. Patient is still unsteady and still needs assistance when ambulating Hypothyroidism secondary to radioablation and non-compliance - TSH: 71.9 and Free T4: <0.07 - Endocrinology consulted, Dr. Enamorado - C/w Levothyroxine 150mg PO ACB Sacral decubitus ulcer stage 2 - Continue local wound care - Cover with optifoam Elevated LFTs - Most likely secondary to alcohol use - ALT/AST: 44/102- downtrending - Abdominal US: Liver fatty infiltration. Trace ascites adjacent to gall bladder - Hepatitis panel: negative - Monitor via serial CMPs Hypomagnesemia and hypokalemia, resolved - Monitor Magnesium and potassium levels - EKG (11/16): NSR at 69 bpm Pancytopenia - Most likely secondary to myelosuppresive effect from chronic alcohol abuse - Will monitor with daily CBCs DVT/GI prophylaxis - Lovenox 40 mg SC Daily - Pepcid 20 mg HS Homelessness - Social work referral - Patient states he will go and live at his friend's house once discharged - Patient was given resources for homelessness in [facility] and highlighted pertinent information DISPO: Continued inpatient admission for treatment of lower extremity edema and weakness. Patient was seen examined and discussed w/ attending physician Dr. Rosario Matos DO PGY1 - Internal Medicine Hip Hop Artist <Kaya Ponce - Last Filed: 11/21/17 16:11> Objective - Vital Signs/Intake and Output Vital Signs (last 24 hours): Temp Pulse Resp BP Pulse Ox 98.9 F 62 20 110/76 96 11/21/17 07:52 11/21/17 07:52 11/21/17 07:52 11/21/17 07:52 11/21/17 07:52 Intake and Output: 11/21/17 11/21/17 06:59 18:59 Intake Total 480 Output Total 2600 Balance -2120 - Medications Medications: Current Medications Calamine (Calamine Lotion) 0 ml TOP BID [facility] Last Admin: 11/21/17 09:15 Dose: 120 ml Enoxaparin Sodium (Lovenox) 40 mg SC DAILY [facility] PRN Reason: Protocol Last Admin: 11/21/17 09:11 Dose: 40 mg Famotidine (Pepcid) 20 mg PO HS [facility] Last Admin: 11/20/17 21:30 Dose: 20 mg Folic Acid (Folic Acid) 1 mg PO DAILY [facility] Last Admin: 11/21/17 09:12 Dose: 1 mg Levothyroxine Sodium (Synthroid) 150 mcg PO ACB [facility] Last Admin: 11/21/17 09:12 Dose: 150 mcg Lorazepam (Ativan) 1 mg IVP Q6H PRN; Protocol PRN Reason: Symptoms of alcohol withdrawl Multivitamins (Thera Tab) 1 tab PO 0800 [facility] Last Admin: 11/21/17 09:12 Dose: 1 tab Nicotine (Nicoderm Cq) 1 patch TD DAILY [facility] Last Admin: 11/21/17 09:12 Dose: 1 patch Thiamine HCl (Vitamin B1 Tab) 100 mg PO DAILY [facility] Last Admin: 11/21/17 09:13 Dose: 100 mg Tobramycin Sulfate (Tobrex 0.3% Ophth Oint) 0 appl OU Q6H [facility] Last Admin: 11/21/17 09:16 Dose: 1 applic - Labs Labs: 11/21/17 07:00 11/21/17 07:00 PT 11.4 SECONDS (9.4-12.5) 11/15/17 09:00 INR 0.99 11/15/17 09:00 APTT 31.2 Seconds (25.1-36.5) 11/15/17 09:00 Attending/Attestation - Attestation I have personally seen and examined this patient.: Yes I have fully participated in the care of the patient.: Yes I have reviewed all pertinent clinical information, including history, physical exam and plan: Yes Notes (Text): 11/21/17 16:09 37 year old male with past medical history of hypothyroidism, chronic alcohol abuse and homelessness who presented with lower leg swelling and alcohol intoxication. He is on tapering ativan arline/prn for withdrawal symptoms which have improved. He was counselled on alcohol abstinence. He has chronic venous stasis with superimposed sun burn in lower legs which improved with calamine cream. Pancytopenia is stable. LFTs have improved. He is on synthroid for hypothyroidism. Endocrinology is following. He was counselled on medication compliance. Patient still complains of generalized weakness and unsteady gait which is slowly improving. Continue with physical therapy. D/c planning once cleared by PT. Kaya Ponce MD Hospitalist.
[2017-11-22] MEDS: Tobramycin 0.3% OPH OINT OU SCH ×4 (02:21→21:22)
[2017-11-22 07:36] LABS: BASO # 0.01 K/mm3 (0.0-2.0); BASO % 0.2 % (0.0-3.0); EOS % 0.6 % (1.5-5.0); GRAN # 2.51 (1.4-6.5); HEMOGLOBIN 7.9 g/dL (14.0-18.0); LYMPH # 1.6 (1.2-3.4); LYMPH % 34.6 % (22.0-35.0); MEAN CELL VOLUME 104.5 fl (80.0-105.0); MEAN CORPUSCULAR HEMOGLOBIN 35.9 pg (25.0-35.0); MEAN CORPUSCULAR HGB CONC 34.3 g/dl (31.0-37.0); MEAN PLATELET VOLUME 9.8 fl (7.0-11.0); MONO # 0.6 (0.1-0.6); MONO % 11.6 % (1.0-6.0); RBC 2.2 10^6/uL (3.5-6.1); RED CELL DISTRIBUTION WIDTH 13.1 % (11.5-14.5); WHITE BLOOD COUNT 4.7 10^3/ul (4.5-11.0)
[2017-11-22 07:49] LABS: ALB/GLOB RATIO 1.4 (1.1-1.8); ALBUMIN 3.7 g/dL (3.0-4.8); ALT/SGPT 45 U/L (7-56); AST/SGOT 79 U/L (17-59); BLOOD UREA NITROGEN 17 mg/dL (7-21); CALCIUM 9.3 mg/dL (8.4-10.5); GFR NON-AFRICAN AMERICAN > 60
[2017-11-22] MEDS: Multivitamin Therapeutic Tab PO SCH (08:21)
[2017-11-22] MEDS: Levothyroxine 150 MCG TAB PO SCH (08:21)
[2017-11-22] MEDS: Enoxaparin 40 mg Syringe SC SCH (09:56)
[2017-11-22] MEDS: Calamine-Zinc Oxide Lotion (120 ml) TOP SCH ×2 (09:57→17:18)
--- NOTE | 2017-11-22 18:00 | CP.PCM.PN ---
<Dorian Matos - Last Filed: 11/22/17 17:56> Subjective - Date & Time of Evaluation Date of Evaluation: 11/22/17 Time of Evaluation: 17:56 - Subjective Subjective: Dorian Matos DO PGY1 - Internal Medicine Prenatal Teacher - Hospital Progress Note Patient was seen this AM at bedside; had no acute complaints or events overnight. Still reports some gait unsteadiness, and difficulty walking. Denies any chest pain, palpitations, sob, cough, abd pain, n/v/d/c, hallucinations. Patient was counseled on his EtOH use and voiced agreement with EtOH cessation. Objective - Vital Signs/Intake and Output Vital Signs (last 24 hours): Temp Pulse Resp BP Pulse Ox 98.3 F 56 L 20 104/74 99 11/22/17 16:30 11/22/17 16:30 11/22/17 16:30 11/22/17 16:30 11/22/17 16:30 Intake and Output: 11/22/17 11/22/17 06:59 18:59 Intake Total 240 Output Total 2100 Balance -1860 - Medications Medications: Current Medications Calamine (Calamine Lotion) 0 ml TOP BID [facility] Last Admin: 11/22/17 17:18 Dose: 120 ml Enoxaparin Sodium (Lovenox) 40 mg SC DAILY [facility] PRN Reason: Protocol Last Admin: 11/22/17 09:56 Dose: 40 mg Famotidine (Pepcid) 20 mg PO HS [facility] Last Admin: 11/21/17 21:32 Dose: 20 mg Folic Acid (Folic Acid) 1 mg PO DAILY [facility] Last Admin: 11/22/17 09:55 Dose: 1 mg Levothyroxine Sodium (Synthroid) 150 mcg PO ACB [facility] Last Admin: 11/22/17 08:21 Dose: 150 mcg Lorazepam (Ativan) 1 mg IVP Q6H PRN; Protocol PRN Reason: Symptoms of alcohol withdrawl Multivitamins (Thera Tab) 1 tab PO 0800 [facility] Last Admin: 11/22/17 08:21 Dose: 1 tab Nicotine (Nicoderm Cq) 1 patch TD DAILY [facility] Last Admin: 11/22/17 09:56 Dose: 1 patch Thiamine HCl (Vitamin B1 Tab) 100 mg PO DAILY [facility] Last Admin: 11/22/17 09:56 Dose: 100 mg Tobramycin Sulfate (Tobrex 0.3% Ophth Oint) 0 appl OU Q6H [facility] Last Admin: 11/22/17 15:20 Dose: 1 applic - Labs Labs: 11/22/17 07:00 11/22/17 07:00 PT 11.4 SECONDS (9.4-12.5) 11/15/17 09:00 INR 0.99 11/15/17 09:00 APTT 31.2 Seconds (25.1-36.5) 11/15/17 09:00 Physical Exam - Constitutional Appears: No Acute Distress - Head Exam Head Exam: ATRAUMATIC, NORMAL INSPECTION - Eye Exam Eye Exam: Normal appearance, PERRL - ENT Exam ENT Exam: Mucous Membranes Moist - Respiratory Exam Respiratory Exam: Clear to Ausculation Bilateral. absent: Rales, Rhonchi, Wheezes, Respiratory Distress - Cardiovascular Exam Cardiovascular Exam: REGULAR RHYTHM, +S1, +S2. absent: Gallop, Rubs, Murmur - GI/Abdominal Exam GI & Abdominal Exam: Soft, Normal Bowel Sounds. absent: Tenderness - Extremities Exam Additional comments: Bilateral lower extremities warm, erythematous, Sun-Burnt erythema much improved still red however no flaking. - Neurological Exam Neurological Exam: Alert, Awake, Oriented x3 - Psychiatric Exam Psychiatric exam: Normal Affect, Normal Mood - Skin Skin Exam: Dry, Intact, Normal Color, Warm Assessment and Plan - Assessment and Plan (Free Text) Assessment: Mr. Castorena is a 37 year old male with a past medical history of chronic lower extremity venous stasis, hypothyroidism, alcohol abuse, and smoking who was admitted for bilateral lower extremity pain and alcohol withdrawal symptoms. Plan: LE Gait Instability/ LE numbness/tingling -Most likely 2/2 chronic EtOH use -Improving w/ PT at this time -Continue monitoring w/ therapy Lower extremity Pain, improving - Most likely secondary to chronic venous stasis with superimposed sun burn - Lower extremity Dopplers: No DVT - C/w Calamime cream to be applied BID to affected areas Alcohol withdrawal symptoms - No ativan needed in 24H; Ativan DC'd - Seizure and fall protocol - C/w Multivitamin, Folic acid, and Thiamine - Patient encouraged to ambulate to the chair and bathroom more often with nurse 's help - PT evaluated patient and gave patient a cane to use. Patient is still unsteady and still needs assistance when ambulating Hypothyroidism secondary to radioablation and non-compliance - TSH: 71.9 and Free T4: <0.07 - Endocrinology consulted, Dr. Enamorado - C/w Levothyroxine 150mg PO ACB Sacral decubitus ulcer stage 2 - Continue local wound care - Cover with optifoam Elevated LFTs - Most likely secondary to alcohol use - ALT/AST: 44/102- downtrending - Abdominal US: Liver fatty infiltration. Trace ascites adjacent to gall bladder - Hepatitis panel: negative - Monitor via serial CMPs Hypomagnesemia and hypokalemia, resolved - Monitor Magnesium and potassium levels - EKG (11/16): NSR at 69 bpm Pancytopenia - Most likely secondary to myelosuppresive effect from chronic alcohol abuse - Will monitor with daily CBCs DVT/GI prophylaxis - Lovenox 40 mg SC Daily - Pepcid 20 mg HS Homelessness - Social work referral - Patient states he will go and live at his friend's house once discharged - Patient was given resources for homelessness in [facility] and highlighted pertinent information DISPO: Continued inpatient admission for treatment of lower extremity edema and weakness. Pt. is tolerating PT well and is showing some improvements at this time. His gait has still not returned to baseline and will require continued inpatient admission to improve gait and stability issues. Patient was seen examined and discussed w/ attending physician Dr. Rosario Matos DO PGY1 - Internal Medicine Prenatal Teacher <Kaya Ponce - Last Filed: 11/22/17 18:27> Objective - Vital Signs/Intake and Output Vital Signs (last 24 hours): Temp Pulse Resp BP Pulse Ox 98.3 F 56 L 20 104/74 99 11/22/17 16:30 11/22/17 16:30 11/22/17 16:30 11/22/17 16:30 11/22/17 16:30 Intake and Output: 11/22/17 11/22/17 06:59 18:59 Intake Total 240 Output Total 2100 Balance -1860 - Medications Medications: Current Medications Calamine (Calamine Lotion) 0 ml TOP BID [facility] Last Admin: 11/22/17 17:18 Dose: 120 ml Enoxaparin Sodium (Lovenox) 40 mg SC DAILY [facility] PRN Reason: Protocol Last Admin: 11/22/17 09:56 Dose: 40 mg Famotidine (Pepcid) 20 mg PO HS [facility] Last Admin: 11/21/17 21:32 Dose: 20 mg Folic Acid (Folic Acid) 1 mg PO DAILY [facility] Last Admin: 11/22/17 09:55 Dose: 1 mg Levothyroxine Sodium (Synthroid) 150 mcg PO ACB [facility] Last Admin: 11/22/17 08:21 Dose: 150 mcg Lorazepam (Ativan) 1 mg IVP Q6H PRN; Protocol PRN Reason: Symptoms of alcohol withdrawl Multivitamins (Thera Tab) 1 tab PO 0800 [facility] Last Admin: 11/22/17 08:21 Dose: 1 tab Nicotine (Nicoderm Cq) 1 patch TD DAILY [facility] Last Admin: 11/22/17 09:56 Dose: 1 patch Thiamine HCl (Vitamin B1 Tab) 100 mg PO DAILY [facility] Last Admin: 11/22/17 09:56 Dose: 100 mg Tobramycin Sulfate (Tobrex 0.3% Ophth Oint) 0 appl OU Q6H [facility] Last Admin: 11/22/17 15:20 Dose: 1 applic - Labs Labs: 11/22/17 07:00 11/22/17 07:00 PT 11.4 SECONDS (9.4-12.5) 11/15/17 09:00 INR 0.99 11/15/17 09:00 APTT 31.2 Seconds (25.1-36.5) 11/15/17 09:00 Attending/Attestation - Attestation I have personally seen and examined this patient.: Yes I have fully participated in the care of the patient.: Yes I have reviewed all pertinent clinical information, including history, physical exam and plan: Yes Notes (Text): 11/22/17 18:25 37 year old male with past medical history of hypothyroidism, chronic alcohol abuse and homelessness who presented with lower leg swelling and alcohol intoxication. He was on tapering ativan arline/prn for withdrawal symptoms which have improved. He was counselled on alcohol abstinence. He has chronic venous stasis with superimposed sun burn in lower legs which improved with calamine cream. He is on synthroid for hypothyroidism. Endocrinology is following. He was counselled on medication compliance. Transaminitis has improved. His unsteady gait is also slowly improving. Continue with physical therapy. D/ c planning likely tomorrow if his gait continues to improve. Kaya Ponce MD Hospitalist.
[2017-11-23] MEDS: Tobramycin 0.3% OPH OINT OU SCH ×2 (03:21→09:43)
[2017-11-23 07:31] LABS: BASO # 0.05 K/mm3 (0.0-2.0); EOS % 0.6 % (1.5-5.0); GRAN # 2.94 (1.4-6.5); GRAN % 58.5 % (50.0-68.0); LYMPH # 1.5 (1.2-3.4); LYMPH % 30.6 % (22.0-35.0); MEAN CELL VOLUME 103.6 fl (80.0-105.0); MEAN CORPUSCULAR HEMOGLOBIN 35.7 pg (25.0-35.0); MEAN CORPUSCULAR HGB CONC 34.5 g/dl (31.0-37.0); MEAN PLATELET VOLUME 9.7 fl (7.0-11.0); MONO # 0.5 (0.1-0.6); MONO % 9.3 % (1.0-6.0); RBC 2.24 10^6/uL (3.5-6.1); RED CELL DISTRIBUTION WIDTH 12.9 % (11.5-14.5)
[2017-11-23 07:54] LABS: ALB/GLOB RATIO 1.5 (1.1-1.8); ALT/SGPT 37 U/L (7-56); AST/SGOT 78 U/L (17-59); BLOOD UREA NITROGEN 15 mg/dL (7-21); CALCIUM 9.8 mg/dL (8.4-10.5); GFR NON-AFRICAN AMERICAN > 60
[2017-11-23 07:58] LABS: FREE T4 0.31 ng/dL (0.78-2.19); T4 3.3 ug/dL (5.5-11.0)
[2017-11-23 08:00] VITALS: BP 91/62; PULSE 61; TEMP 98.1; O2SAT 94
[2017-11-23] MEDS: Levothyroxine 150 MCG TAB PO SCH (08:49)
[2017-11-23] MEDS: Multivitamin Therapeutic Tab PO SCH (08:49)
[2017-11-23] MEDS: Enoxaparin 40 mg Syringe SC SCH (09:42)
[2017-11-23] MEDS: Calamine-Zinc Oxide Lotion (120 ml) TOP SCH (09:43)
--- NOTE | 2017-11-23 09:54 | CP.PCM.PN ---
Subjective - Date & Time of Evaluation Date of Evaluation: 11/23/17 Time of Evaluation: 09:51 - Subjective Subjective: Endocrinology progress note for Dr. Fei Chapman PGY3 Patient seen and examined at bedside this morning. No acute overnight events or new complaints reported. Denies chest pain, palpitations, SOB. Objective - Vital Signs/Intake and Output Vital Signs (last 24 hours): Temp Pulse Resp BP Pulse Ox 98.1 F 61 20 91/62 L 94 L 11/23/17 08:00 11/23/17 08:00 11/23/17 08:00 11/23/17 08:00 11/23/17 08:00 - Medications Medications: Current Medications Calamine (Calamine Lotion) 0 ml TOP BID [facility] Last Admin: 11/22/17 17:18 Dose: 120 ml Enoxaparin Sodium (Lovenox) 40 mg SC DAILY [facility] PRN Reason: Protocol Last Admin: 11/22/17 09:56 Dose: 40 mg Famotidine (Pepcid) 20 mg PO HS [facility] Last Admin: 11/22/17 21:15 Dose: 20 mg Folic Acid (Folic Acid) 1 mg PO DAILY [facility] Last Admin: 11/22/17 09:55 Dose: 1 mg Levothyroxine Sodium (Synthroid) 150 mcg PO ACB [facility] Last Admin: 11/23/17 08:49 Dose: 150 mcg Lorazepam (Ativan) 1 mg IVP Q6H PRN; Protocol PRN Reason: Symptoms of alcohol withdrawl Multivitamins (Thera Tab) 1 tab PO 0800 [facility] Last Admin: 11/23/17 08:49 Dose: 1 tab Nicotine (Nicoderm Cq) 1 patch TD DAILY [facility] Last Admin: 11/22/17 09:56 Dose: 1 patch Thiamine HCl (Vitamin B1 Tab) 100 mg PO DAILY [facility] Last Admin: 11/22/17 09:56 Dose: 100 mg Tobramycin Sulfate (Tobrex 0.3% Ophth Oint) 0 appl OU Q6H [facility] Last Admin: 11/23/17 03:21 Dose: Not Given - Labs Labs: 11/23/17 07:00 11/23/17 07:00 PT 11.4 SECONDS (9.4-12.5) 11/15/17 09:00 INR 0.99 11/15/17 09:00 APTT 31.2 Seconds (25.1-36.5) 11/15/17 09:00 - Constitutional Appears: Non-toxic, No Acute Distress - Head Exam Head Exam: ATRAUMATIC, NORMAL INSPECTION, NORMOCEPHALIC - Eye Exam Eye Exam: EOMI Pupil Exam: PERRL - ENT Exam ENT Exam: Mucous Membranes Moist - Respiratory Exam Respiratory Exam: absent: Rales, Rhonchi, Wheezes - Cardiovascular Exam Cardiovascular Exam: +S1, +S2. absent: Gallop, Rubs - GI/Abdominal Exam GI & Abdominal Exam: Soft. absent: Distended, Firm, Guarding, Rigid, Tenderness , Rebound - Neurological Exam Neurological Exam: Alert, Awake, CN II-XII Intact, Oriented x3 - Psychiatric Exam Psychiatric exam: Normal Affect, Normal Mood - Skin Skin Exam: Dry, Intact, Normal Color, Warm Assessment and Plan - Assessment and Plan (Free Text) Plan: 37yo male with history of hypothyroidism but was noncompliant and has not been taking his medications for the past 1 year, presents with moderate hypothyroidism. -Continue with synthroid as ordered 150 mcg as ordered -Monitor/correct electrolyte abnormalities as indicated -Continue current medical management as per primary team -Encourage outpatient follow up with a PMD upon discharge Patient seen and case to be discussed/reviewed with attending, Dr. Enamorado
--- NOTE | 2017-11-23 12:31 | CP.PCM.DIS ---
<Satya Gutierrez - Last Filed: 11/23/17 18:24> Provider - Provider Date of Admission: 11/15/17 11:00 Attending physician: Kaya Ponce MD Primary care physician: NO FAMILY PROVIDER Time Spent in preparation of Discharge (in minutes): 45 Diagnosis - Discharge Diagnosis (1) Alcohol intoxication Status: Resolved Priority: High (2) Hypokalemia Status: Chronic Priority: Medium (3) Hypomagnesemia Status: Chronic Priority: Medium (4) Leg swelling Status: Chronic Priority: Medium Hospital Course - Lab Results Lab Results: Most Recent Lab Values WBC 5.0 10^3/ul (4.5-11.0) 11/23/17 07:00 RBC 2.24 10^6/uL (3.5-6.1) L 11/23/17 07:00 Hgb 8.0 g/dL (14.0-18.0) L 11/23/17 07:00 Hct 23.2 % (42.0-52.0) L 11/23/17 07:00 MCV 103.6 fl (80.0-105.0) 11/23/17 07:00 MCH 35.7 pg (25.0-35.0) H 11/23/17 07:00 MCHC 34.5 g/dl (31.0-37.0) 11/23/17 07:00 RDW 12.9 % (11.5-14.5) 11/23/17 07:00 Plt Count 261 10^3/uL (120.0-450.0) 11/23/17 07:00 MPV 9.7 fl (7.0-11.0) 11/23/17 07:00 Gran % 58.5 % (50.0-68.0) 11/23/17 07:00 Lymph % (Auto) 30.6 % (22.0-35.0) 11/23/17 07:00 [place] % (Auto) 9.3 % (1.0-6.0) H 11/23/17 07:00 Eos % (Auto) 0.6 % (1.5-5.0) L 11/23/17 07:00 Baso % (Auto) 1.0 % (0.0-3.0) 11/23/17 07:00 Gran # 2.94 (1.4-6.5) 11/23/17 07:00 Lymph # (Auto) 1.5 (1.2-3.4) 11/23/17 07:00 [place] # (Auto) 0.5 (0.1-0.6) 11/23/17 07:00 Eos # (Auto) 0.0 (0.0-0.7) 11/23/17 07:00 Baso # (Auto) 0.05 K/mm3 (0.0-2.0) 11/23/17 07:00 PT 11.4 SECONDS (9.4-12.5) 11/15/17 09:00 INR 0.99 11/15/17 09:00 APTT 31.2 Seconds (25.1-36.5) 11/15/17 09:00 Sodium 138 mmol/L (132-148) 11/23/17 07:00 Potassium 3.8 mmol/L (3.6-5.0) 11/23/17 07:00 Chloride 100 mmol/L (98-107) 11/23/17 07:00 Carbon Dioxide 30 mmol/L (21-33) 11/23/17 07:00 Anion Gap 13 (10-20) 11/23/17 07:00 BUN 15 mg/dL (7-21) 11/23/17 07:00 Creatinine 0.9 mg/dl (0.8-1.5) 11/23/17 07:00 Est GFR ( Amer) > 60 11/23/17 07:00 Est GFR (Non-Af Amer) > 60 11/23/17 07:00 Random Glucose 81 mg/dL (70-110) 11/23/17 07:00 Hemoglobin A1c 5.0 % (4.2-6.5) 11/15/17 09:00 Calcium 9.8 mg/dL (8.4-10.5) 11/23/17 07:00 Phosphorus 2.5 mg/dL (2.5-4.5) 11/16/17 16:32 Magnesium 1.9 mg/dL (1.7-2.2) 11/16/17 16:32 Total Bilirubin 0.8 mg/dL (0.2-1.3) 11/23/17 07:00 AST 78 U/L (17-59) H 11/23/17 07:00 ALT 37 U/L (7-56) 11/23/17 07:00 Alkaline Phosphatase 83 U/L (38-126) 11/23/17 07:00 Total Creatine Kinase 706 U/L (35-230) H 11/19/17 06:30 CK-MB (CK-2) 4.2 ng/mL (0.0-3.6) H 11/19/17 06:30 CK-MB (CK-2) % 0.3 % (2.5-3.0) L 11/15/17 09:00 Total Protein 6.8 g/dL (5.8-8.3) 11/23/17 07:00 Albumin 4.0 g/dL (3.0-4.8) 11/23/17 07:00 Globulin 2.7 gm/dL 11/23/17 07:00 Albumin/Globulin Ratio 1.5 (1.1-1.8) 11/23/17 07:00 Vitamin B12 510 pg/mL (239-931) 11/15/17 09:00 Folate 4.5 ng/mL 11/15/17 09:00 Free T4 0.31 ng/dL (0.78-2.19) L 11/23/17 07:00 Thyroxine (T4) 3.3 ug/dL (5.5-11.0) L 11/23/17 07:00 TSH 3rd Generation 77.60 mIU/mL (0.46-4.68) H 11/23/17 07:00 Thyroid Stim Immunoglob 156 % baseline (<140) H 11/16/17 05:50 Alcohol, Quantitative < 10 mg/dL (0-10) 11/17/17 10:40 Hepatitis A IgM Ab Negative (NEGATIVE) 11/15/17 09:00 Hep Bs Antigen Negative (NEGATIVE) 11/15/17 09:00 Hep B Core IgM Ab Negative (NEGATIVE) 11/15/17 09:00 Hepatitis C Antibody Negative (NEGATIVE) 11/15/17 09:00 - Hospital Course Hospital Course: Mr. Castorena is a 37 year old male with a past medical history of chronic lower extremity venous stasis, hypothyroidism, alcohol abuse, and smoking who was admitted on 11-15-17 for bilateral lower extremity pain and alcohol withdrawal symptoms. Pt had chronic venous stasis with superimposed sun burn on lower legs when he presented [place] [facility] which has improved during the course of his stay with calamine cream. Pt has hypothyroidism and is being treated with synthroid. Endocrinology was consulted during this admission. Pt was counselled on the importance of medication compliance. Pt was also extensively counseled on the importance of alcohol cessation. Pt was found to have a transaminitis during his admission. Pt was given an appointment for the out patient [facility] clinic for November 27 at 2pm. Pt had an unsteady gait during the admission which slowly improved with physical therapy. - Date & Time of H&P Date of H&P: 11/23/17 Time of H&P: 18:20 Discharge Exam - Head Exam Head Exam: ATRAUMATIC, NORMAL INSPECTION, NORMOCEPHALIC - Eye Exam Eye Exam: EOMI - ENT Exam ENT Exam: Mucous Membranes Moist - Respiratory Exam Respiratory Exam: NORMAL BREATHING PATTERN. absent: Accessory Muscle Use - Cardiovascular Exam Cardiovascular Exam: REGULAR RHYTHM, RRR, +S1, +S2. absent: JVD - GI/Abdominal Exam GI & Abdominal Exam: Normal Bowel Sounds. absent: Distended - Extremities Exam Extremities exam: full ROM - Neurological Exam Neurological exam: Alert - Psychiatric Exam Psychiatric exam: Normal Affect, Normal Mood - Skin Skin Exam: Dry, Normal Color, Warm Discharge Plan - Discharge Medications Prescriptions: Calamine/Zinc Oxide [Calamine Lotion] 0 ml TOP BID #1 bottle Folic Acid 1 mg PO DAILY #30 tab Levothyroxine [Synthroid] 150 mcg PO DAILY #30 tab Multivitamin Therapeutic Tab [Thera Tab] 1 tab PO 0800 #30 tab Thiamine HCl [Vitamin B-1] 100 mg PO DAILY #30 tablet Tobramycin 0.3% [Tobrex 0.3% Ophth Oint] 0 appl OU Q6H #1 tube - Follow Up Plan Condition: STABLE Disposition: HOME/ ROUTINE Instructions: Hypothyroidism (Underactive Thyroid) (DC), Preventing Falls, Alcohol Withdrawal (DC) Additional Instructions: Patient discharged home and instructed to follow-[place] [facility] [place] 11/[facility]/17 at 2PM, continue medications as prescribed, abstain from alcohol use, continue skin care as instructed to prevent further damage. May return to nearest ER if experiencing worsening of symptoms. Referrals: FAMILY PROVIDER,NO [Primary Care Provider] - <Kaya Ponce - Last Filed: 11/23/17 18:38> Provider - Provider Date of Admission: 11/15/17 11:00 Attending physician: Kaya Ponce MD Primary care physician: NO FAMILY PROVIDER Hospital Course - Lab Results Lab Results: Most Recent Lab Values WBC 5.0 10^3/ul (4.5-11.0) 11/23/17 07:00 RBC 2.24 10^6/uL (3.5-6.1) L 11/23/17 07:00 Hgb 8.0 g/dL (14.0-18.0) L 11/23/17 07:00 Hct 23.2 % (42.0-52.0) L 11/23/17 07:00 MCV 103.6 fl (80.0-105.0) 11/23/17 07:00 MCH 35.7 pg (25.0-35.0) H 11/23/17 07:00 MCHC 34.5 g/dl (31.0-37.0) 11/23/17 07:00 RDW 12.9 % (11.5-14.5) 11/23/17 07:00 Plt Count 261 10^3/uL (120.0-450.0) 11/23/17 07:00 MPV 9.7 fl (7.0-11.0) 11/23/17 07:00 Gran % 58.5 % (50.0-68.0) 11/23/17 07:00 Lymph % (Auto) 30.6 % (22.0-35.0) 11/23/17 07:00 [place] % (Auto) 9.3 % (1.0-6.0) H 11/23/17 07:00 Eos % (Auto) 0.6 % (1.5-5.0) L 11/23/17 07:00 Baso % (Auto) 1.0 % (0.0-3.0) 11/23/17 07:00 Gran # 2.94 (1.4-6.5) 11/23/17 07:00 Lymph # (Auto) 1.5 (1.2-3.4) 11/23/17 07:00 [place] # (Auto) 0.5 (0.1-0.6) 11/23/17 07:00 Eos # (Auto) 0.0 (0.0-0.7) 11/23/17 07:00 Baso # (Auto) 0.05 K/mm3 (0.0-2.0) 11/23/17 07:00 PT 11.4 SECONDS (9.4-12.5) 11/15/17 09:00 INR 0.99 11/15/17 09:00 APTT 31.2 Seconds (25.1-36.5) 11/15/17 09:00 Sodium 138 mmol/L (132-148) 11/23/17 07:00 Potassium 3.8 mmol/L (3.6-5.0) 11/23/17 07:00 Chloride 100 mmol/L (98-107) 11/23/17 07:00 Carbon Dioxide 30 mmol/L (21-33) 11/23/17 07:00 Anion Gap 13 (10-20) 11/23/17 07:00 BUN 15 mg/dL (7-21) 11/23/17 07:00 Creatinine 0.9 mg/dl (0.8-1.5) 11/23/17 07:00 Est GFR ( Amer) > 60 11/23/17 07:00 Est GFR (Non-Af Amer) > 60 11/23/17 07:00 Random Glucose 81 mg/dL (70-110) 11/23/17 07:00 Hemoglobin A1c 5.0 % (4.2-6.5) 11/15/17 09:00 Calcium 9.8 mg/dL (8.4-10.5) 11/23/17 07:00 Phosphorus 2.5 mg/dL (2.5-4.5) 11/16/17 16:32 Magnesium 1.9 mg/dL (1.7-2.2) 11/16/17 16:32 Total Bilirubin 0.8 mg/dL (0.2-1.3) 11/23/17 07:00 AST 78 U/L (17-59) H 11/23/17 07:00 ALT 37 U/L (7-56) 11/23/17 07:00 Alkaline Phosphatase 83 U/L (38-126) 11/23/17 07:00 Total Creatine Kinase 706 U/L (35-230) H 11/19/17 06:30 CK-MB (CK-2) 4.2 ng/mL (0.0-3.6) H 11/19/17 06:30 CK-MB (CK-2) % 0.3 % (2.5-3.0) L 11/15/17 09:00 Total Protein 6.8 g/dL (5.8-8.3) 11/23/17 07:00 Albumin 4.0 g/dL (3.0-4.8) 11/23/17 07:00 Globulin 2.7 gm/dL 11/23/17 07:00 Albumin/Globulin Ratio 1.5 (1.1-1.8) 11/23/17 07:00 Vitamin B12 510 pg/mL (239-931) 11/15/17 09:00 Folate 4.5 ng/mL 11/15/17 09:00 Free T4 0.31 ng/dL (0.78-2.19) L 11/23/17 07:00 Thyroxine (T4) 3.3 ug/dL (5.5-11.0) L 11/23/17 07:00 TSH 3rd Generation 77.60 mIU/mL (0.46-4.68) H 11/23/17 07:00 Thyroid Stim Immunoglob 156 % baseline (<140) H 11/16/17 05:50 Alcohol, Quantitative < 10 mg/dL (0-10) 11/17/17 10:40 Hepatitis A IgM Ab Negative (NEGATIVE) 11/15/17 09:00 Hep Bs Antigen Negative (NEGATIVE) 11/15/17 09:00 Hep B Core IgM Ab Negative (NEGATIVE) 11/15/17 09:00 Hepatitis C Antibody Negative (NEGATIVE) 11/15/17 09:00 Attending/Attestation - Attestation I have personally seen and examined this patient.: Yes I have fully participated in the care of the patient.: Yes I have reviewed all pertinent clinical information, including history, physical exam and plan: Yes Notes (Text): 11/23/17 18:35 37 year old male with past medical history of hypothyroidism, chronic alcohol abuse and homelessness who presented with lower leg swelling and alcohol intoxication. He was treated with tapering ativan arline/prn for withdrawal symptoms. He was counselled on alcohol abstinence. He had chronic venous stasis with superimposed sun burn in lower legs which improved with calamine cream. He was on synthroid for hypothyroidism. He was counselled on medication compliance. He initially had transaminitis secondary to chronic ETOH abuse which improved. He was seen by PT for deconditioned state with unsteady gait which slowly improved over the past few days. Patient is discharged today to follow up at [facility]. Counselled on medication and outpatient follow up compliance. Counselled on alcohol abstinence. Kaya Ponce MD Hospitalist.
== END 2017-11-23 15:55 | disposition home or self-care (01) | DRG 750 ==
LOC: ED 06:18 → ERH 11:00 → 3RSO 13:01 → 3RNO 11-18 15:17
PROVIDERS: ADMIT Internal Medicine; ATTEND Internal Medicine
DX: F10.229 Alcohol dependence with intoxication, unspecified (principal); E87.6 Hypokalemia; L89.152 Pressure ulcer of sacral region, stage 2; D61.818 Other pancytopenia; F10.239 Alcohol dependence with withdrawal, unspecified; Y90.8 Blood alcohol level of 240 mg/100 ml or more; E83.42 Hypomagnesemia; I10 Essential (primary) hypertension; E06.3 Autoimmune thyroiditis; H10.9 Unspecified conjunctivitis; E78.5 Hyperlipidemia, unspecified; F17.210 Nicotine dependence, cigarettes, uncomplicated; R26.2 Difficulty in walking, not elsewhere classified; I87.8 Other specified disorders of veins; L55.9 Sunburn, unspecified; Z91.14 Patient's other noncompliance with medication regimen; Z59.0 Homelessness; Z83.3 Family history of diabetes mellitus; Z80.3 Family history of malignant neoplasm of breast